=== PATIENT | female | born 1950 | race Caucasian/White ===

== ENCOUNTER → 2017-07-19 12:27 | Outpatient (CLI) | payer MEDICARE, SELFPAY ==
--- NOTE | 2017-07-19 12:32 | XR_ITS ---
XR hand RT min 3V HISTORY: Right thumb pain ITS.REASON: right thumb pain ORDERING PHYSICIAN: Kristopher Luna MD PATIENT AGE: 66 years COMPARISON: None FINDINGS: There are mild osteoarthritic changes of the first metacarpal carpal joint with minimal osteophyte formation at the trapezium. The hand has an otherwise unremarkable appearance. There are some hypertrophic changes of the distal aspect of the scaphoid as well. No fracture or dislocation. No lytic or blastic change. 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
== END ==
PROVIDERS: PCP Family Medicine; Visit Provider Orthopaedic Surgery
DX: M79.644 Pain in right finger(s) (principal)
CPT/HCPCS: 73130

== ENCOUNTER → 2017-09-18 10:55 | Outpatient (CLI) | payer MEDICARE, SELFPAY ==
--- NOTE | 2017-09-18 11:11 | MM_ITS ---
MM Dig screening mamm BI w/CAD CAD Screening ORDERING PHYSICIAN : Martin Pham MD PATIENT AGE: 66 years GENDER: Female HISTORY : No hormones. No new complaints. Noncontributory family history COMPARISON: Previous mammograms: August 2015, 2016, 2014, June 2013 INDICATION: Routine screening TECHNIQUE: Standard CC and MLO images were obtained. R2 CAD reviewed. FINDINGS: Stable mild asymmetry with no significant new findings. No dominant mass nor suspicious calcifications either breast.. Moderate density with Mild/moderate fibroglandular elements in both breast which again are most evident at the right breast. CAD computer review highlights no areas of concern either. . IMPRESSION: Stable bilateral mammogram with no significant new findings. Bilateral follow-up in one year recommended. BI-RADS Category: 1 Negative RECOMMENDED FOLLOW-UP: 1YR - 1 YEAR FOLLOW-UP (A letter has been sent to the patient regarding results of the study.)
== END ==
PROVIDERS: Family Provider Family Medicine; PCP Family Medicine; Visit Provider Family Medicine
DX: Z12.31 Encounter for screening mammogram for malignant neoplasm of breast (principal)
CPT/HCPCS: 77067

== ENCOUNTER → 2018-10-10 09:59 | Outpatient (CLI) | payer MEDICARE, SELFPAY ==
--- NOTE | 2018-10-10 10:05 | XR_ITS ---
XR DEXA axial skeleton HISTORY: ITS.REASON: POST MENOPAUSAL ORDERING PHYSICIAN: Martin Pham MD PATIENT AGE: 67 years COMPARISON: 11/10/2015 FINDINGS: The BMD measured at the Left femoral neck is 1.093 g/cm squared with a T score of 0.4. This is considered normal according to the World Health Organization criteria. Fracture risk is Low. The L1 L4 density has a T score of 0.7 which is normal. Lumbar spine density has decreased by 7% in the hip density has decreased by 8 percent. IMPRESSION: Normal bone density with low fracture risk. Suggest follow-up exam October 2020
== END ==
PROVIDERS: PCP Family Medicine; Visit Provider Family Medicine
DX: Z78.0 Asymptomatic menopausal state (principal)
CPT/HCPCS: 77080

== ENCOUNTER → 2018-11-07 11:00 | Outpatient (CLI) | payer MEDICARE, SELFPAY ==
--- NOTE | 2018-11-07 11:04 | MM_ITS ---
MM Dig screening mamm BI w/CAD CAD Screening COMPARISON: Digital mammograms with CAD 09/18/2017 and 08/24/2016 INDICATION: There is no personal or family history of breast cancer TECHNIQUE: Standard CC and MLO images were obtained. R2 CAD reviewed. FINDINGS: Minimal scattered fibroglandular densities are seen in the central portions and subareolar regions of both breasts. There are couple benign-appearing microcalcifications right breast, there is a mole marker left breast. There is no suspicious lesion and there are no suspicious microcalcifications. IMPRESSION: Fibrofatty parenchyma no suspicious lesion seen BI-RADS Category: 2 Benign Finding(s) RECOMMENDED FOLLOW-UP: 1YR - 1 YEAR FOLLOW-UP (A letter has been sent to the patient regarding results of the study.)
== END ==
PROVIDERS: PCP Family Medicine; Visit Provider Family Medicine
DX: Z12.31 Encounter for screening mammogram for malignant neoplasm of breast (principal)
CPT/HCPCS: 77067

== ENCOUNTER → 2019-11-20 12:44 | Outpatient (CLI) | payer MEDICARE, SELFPAY ==
--- NOTE | 2019-11-20 12:49 | MM_ITS ---
PROCEDURE: MM DIG SCREENING MAMM BI W/CAD DIGITAL BREAST TOMOSYNTHESIS INCLUDED Patient Age:68Y CLINICAL INDICATION: SCREENING 68-year-old no hormones no new complaints. 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 R2 CAD reviewed. Bilateral digital breast tomosynthesis included. Additional nipple profile MLO view bilateral FINDINGS: Moderate asymmetry of the breast. Right breast: Again more dense fibroglandular elements throughout superior right breast versus left-but this pattern has been seen before and appears fairly similar to some previous studies . However there is a slightly more focal irregular appearing area of density at 12 o'clock.. Most likely this is stable island of fibroglandular elements but only partially dissipates on tomosynthesis . Still with this appearance I would suggest spot view and ultrasound for further evaluation here particularly since no ultrasound has been performed here previously Left breast: Stable appearance to the left with no areas of concern IMPRESSION: Right breast Asymmetric area of density at 12 o'clock.-Most likely focal island of asymmetric fibroglandular tissue yield this density but warrants a ultrasound and spot views right breast to further evaluate at this time Left breast: Stable. Follow-up left mammogram 1 year BI-RAD Category: 0 Need Additional Imaging Evaluation FOLLOW-UP: IMM Immediate Follow-up Recommended Right breast spot views and ultrasound suggested to further evaluate (A letter has been sent to the patient regarding results of the study.) Dictated by: Renato Marin MD 11/21/2019 09:58 Electronically signed by Renato Marin MD in [place] 11/21/2019 09:58
== END ==
PROVIDERS: PCP Family Medicine; Visit Provider Family Medicine
DX: Z12.31 Encounter for screening mammogram for malignant neoplasm of breast (principal)
CPT/HCPCS: 77063; 77067

== ENCOUNTER → 2019-12-04 12:47 | Outpatient (CLI) | payer MEDICARE, SELFPAY ==
--- NOTE | 2019-12-04 13:06 | US_ITS ---
PROCEDURE: MM DIG MAMM DX UNILAT RT CAD Digital Breast Tomosynthesis Included CLINICAL INDICATION: ABNORMAL MAMMOGRAM Asymmetric density 12 o'clock right breast COMPARISON: MG [facility] MM Dig screening mamm BI w/CAD from 09/18/2017 MG DIG MAMM-SCREEN HERMELINDA from 11/07/2018 MG MM DIG SCREENING MAMM BI W/CAD from 11/20/2019 US US BREAST RT COMPLETE from 12/04/2019 TECHNIQUE: Spot-compression views along with right breast ultrasound complete with axilla FINDINGS: No malignant appearing mass or malignant-appearing microcalcification. Asymmetry noted at the 12 o'clock region as before felt to be related to fibroglandular tissue without a sonographic correlate. A probably unchanged compared to multiple previous exams. Right breast ultrasound: No cystic or solid lesions demonstrated. IMPRESSION: BI-RAD Category: 3 Probably Benign Finding Short Term Follow-up FOLLOW-UP: 6M 6Month Follow-up (A letter has been sent to the patient regarding results of the study.) Dictated b Van Mckinney MD 12/12/2019 18:06 Van Mckinney MD in [place] 12/12/2019 18:06
== END ==
PROVIDERS: PCP Family Medicine; Visit Provider Family Medicine
DX: R92.8 Other abnormal and inconclusive findings on diagnostic imaging of breast (principal)
CPT/HCPCS: 76641; 77061; 77065; G0279

== ENCOUNTER → 2020-06-01 14:19 | Outpatient (CLI) | payer MEDICARE, SELFPAY ==
--- NOTE | 2020-06-01 | US_ITS ---
PROCEDURE: MM DIG MAMM DX UNILAT RT CAD Digital Breast Tomosynthesis Included CLINICAL INDICATION: 6 MTH F/U RT BREAST COMPARISON: MG [facility] DIGITAL MAMM-SCREEN BILATERAL from 05/04/2010 MG DIG MAMM-SCREEN HERMELINDA from 11/07/2018 MG MM DIG SCREENING MAMM BI W/CAD from 11/20/2019 MG MM DIG MAMM DX UNILAT RT CAD from 12/04/2019 US US BREAST RT COMPLETE from 12/04/2019 TECHNIQUE: Standard CC and MLO images and 3D Tomosynthesis was obtained. R2 CAD reviewed. FINDINGS: Average fibroglandular tissue. No malignant appearing mass or malignant-appearing microcalcification evident. Asymmetry once again noted in the superior aspect of the right breast similar to multiple previous exams. Right breast ultrasound: There is an ill-defined area of slight decreased echogenicity in the 10 o'clock region near the nipple containing a prominent duct consistent with fibrocystic changes. IMPRESSION: Benign findings. Recommend resume screening mammogram November 2020 BI-RAD Category: 2 Benign Finding(s) FOLLOW-UP: 6M 6Month Follow-up (A letter has been sent to the patient regarding results of the study.) Dictated by: Van Mckinney MD 06/08/2020 17:16 Van Mckinney MD in [place] 06/08/2020 17:17
== END ==
PROVIDERS: PCP Family Medicine; Visit Provider Family Medicine
DX: R92.8 Other abnormal and inconclusive findings on diagnostic imaging of breast (principal)
CPT/HCPCS: 76641; 77061; 77065; G0279

== ENCOUNTER → 2020-12-09 15:12 | Outpatient (CLI) | payer MEDICARE, SELFPAY ==
--- NOTE | 2020-12-09 15:17 | MM_ITS ---
PROCEDURE INFORMATION: Exam: MG Screening 3D Mammography Exam date and time: 12/09/2020 3:17 PM Age: 70 years old Clinical indication: screening mammogram TECHNIQUE: Imaging protocol: Screening tomosynthesis and 2D mammography including computer-aided detection (CAD) when performed. COMPARISON: 1. MG MM DIG MAMM DX UNILAT RT CAD 06/01/2020 2:54 PM 2. MG MM DIG MAMM DX UNILAT RT CAD 12/04/2019 1:33 PM 3. MG MM DIG SCREENING MAMM BI W/CAD 11/20/2019 1:05 PM 4. MG DIG MAMM-SCREEN HERMELINDA 11/07/2018 11:20 AM 08/24/2016, 08/19/2015, 08/07/2014 FINDINGS: MAMMOGRAPHY: Breast composition: The breast tissue is heterogeneously dense, which may obscure small masses. Mass: None. Architectural distortion: No new or suspicious architectural distortion. Calcifications: No new or suspicious calcifications are present Asymmetric density: Stable focal asymmetry in the upper outer right breast dating back at least to 08/07/2014. No new or suspicious asymmetric density is present Skin thickening: None. Axillary adenopathy: None. IMPRESSION: No mammographic evidence of malignancy. Recommend annual screening mammography unless otherwise clinically indicated. ASSESSMENT: BI-RADS category 2: Benign
== END ==
PROVIDERS: PCP Family Medicine; Visit Provider Family Medicine
DX: Z12.31 Encounter for screening mammogram for malignant neoplasm of breast (principal)
CPT/HCPCS: 77063; 77067

== ENCOUNTER → 2021-06-09 13:21 | Outpatient (CLI) | payer MEDICARE, SELFPAY | PROVIDERS: PCP Family Medicine; Visit Provider Family Medicine | DX: Z12.31 Encounter for screening mammogram for malignant neoplasm of breast (principal) ==

== ENCOUNTER → 2021-12-22 12:54 | Outpatient (CLI) | payer MEDICARE, SELFPAY ==
--- NOTE | 2021-12-22 12:57 | MM_ITS ---
PROCEDURE INFORMATION: Exam: MG Bilateral Screening 3D Mammography Exam date and time: 12/22/2021 12:54 PM Age: 71 years old Clinical indication: Screening examination. No family history of breast cancer. TECHNIQUE: Imaging protocol: Bilateral Screening tomosynthesis and 2D mammography including computer-aided detection (CAD) when performed. COMPARISON: 1. MG MM DIG SCREENING MAMM BI W/CAD 12/09/2020 3:31 PM 2. MG MM DIG MAMM DX UNILAT RT CAD 06/01/2020 2:54 PM 3. MG MM DIG MAMM DX UNILAT RT CAD 12/04/2019 1:33 PM 4. MG MM DIG SCREENING MAMM BI W/CAD 11/20/2019 1:05 PM 5. MG [facility]B DIGITAL MAMM-SCREEN BILATERAL 05/04/2010 1:56 PM FINDINGS: MAMMOGRAPHY: Breast composition: There are scattered areas of fibroglandular density. Mass: None. Architectural distortion: None. Calcifications: No suspicious calcifications. Asymmetric density: Stable asymmetrically denser tissue in the right upper outer quadrant since 05/04/2010. Skin thickening: None. Axillary adenopathy: None. IMPRESSION: No mammographic evidence of malignancy. Annual screening is recommended unless otherwise clinically indicated. ASSESSMENT: BI-RADS Category 1: Negative
== END ==
PROVIDERS: PCP Family Medicine; Visit Provider Family Medicine
DX: Z12.31 Encounter for screening mammogram for malignant neoplasm of breast (principal)
CPT/HCPCS: 77063; 77067

== ENCOUNTER → 2023-01-10 09:19 | Outpatient (CLI) | payer MEDICARE, SELFPAY ==
--- NOTE | 2023-01-10 09:21 | XR_ITS ---
FINAL REPORT TECHNIQUE: Bone densitometry calculations of the lumbar spine and left hip were obtained. CLINICAL HISTORY: POST MENOPAUSAL FINDINGS: Using L1-4, the bone mineral density of the spine is 1.092 g/cm2, corresponding to T-score of 0.4. Using the left hip, the bone mineral density of the femoral neck is 0.969 g/cm2, corresponding to a T-score of 0.2. Using the right hip, the bone mineral density of the femoral neck is 0.997 g/cm2, corresponding to a T-score of 0.4. NOTE: T-score: Standard deviation compared with peak bone mass of young adult mean. *Following the recommendations of the International Society of Bone densitometry, classification of hip BMD is based on the lower of two T-scores; total hip or femoral neck. IMPRESSION: Normal bone mineral density of the lumbar spine and hips. FRAX was not reported because all of the T-scores are at or above -1.0 Reviewed, Interpreted and Dictated by Mikey Sotelo III, MD Transcribed by Heidi Ott Authenticated and [facility]
== END ==
PROVIDERS: PCP Family Medicine; Visit Provider Family Medicine
DX: Z78.0 Asymptomatic menopausal state (principal)
CPT/HCPCS: 77080

== ENCOUNTER → 2023-01-10 09:42 | Outpatient (CLI) | payer MEDICARE, SELFPAY ==
[2023-01-10 10:53] LABS: Chloride 99 mmol/L (98-107); Sodium 134 mmol/L (136-145)
[2023-01-10 10:54] LABS: Potassium 4.7 mmoL/L (3.5-5.1)
[2023-01-10 10:56] LABS: Alanine Aminotransferase 18 U/L (12-78); Albumin/Globulin Ratio 1.9 (1.1-1.8); Alkaline Phosphatase 85 U/L (38-126); Anion Gap 11.7 mEq/L (5-15); Aspartate Amino Transferase 27 U/L (14-36); Bilirubin,Total 0.4 mg/dl (0.2-1.3); Blood Urea Nitrogen 16 mg/dl (7-17); Carbon Dioxide 28 mmol/L (22.0-30.0); Cholesterol 101 mg/dl (140-200); Estimated Glomerular Filt Rate 61 ml/min (>60); GFR (African American) 74 ML/MIN (>60); Globulin 2.1 g/dL (1.3-3.2); Total Protein,Serum 6.1 g/dl (6.3-8.2); Triglycerides 121 mg/dl (30-150); VLDL Cholesterol 24 mg/dL (0-40)
[2023-01-10 10:57] LABS: Calcium 9.4 mg/dl (8.4-10.2); Glucose 99 mg/dl (74-100)
[2023-01-10 11:08] LABS: Direct LDL Cholesterol 34.65 mg/dL (100-129)
[2023-01-10 13:05] LABS: Chol/HDL Ratio 2.2 (1-3.5); HDL Cholesterol 46 mg/dl (40-60)
== END ==
PROVIDERS: PCP Family Medicine; Visit Provider Family Medicine
DX: I10 Essential (primary) hypertension (principal); E78.5 Hyperlipidemia, unspecified; Z78.0 Asymptomatic menopausal state
CPT/HCPCS: 36415; 77080; 80053; 80061

== ENCOUNTER → 2023-02-15 12:51 | Outpatient (CLI) | payer MEDICARE, SELFPAY ==
--- NOTE | 2023-02-15 13:01 | MM_ITS ---
PROCEDURE INFORMATION: Exam: MG Bilateral Screening 3D Mammography Exam date and time: 02/15/2023 1:11 PM Age: 72 years old Clinical indication: Screening examination TECHNIQUE: Imaging protocol: Bilateral Screening tomosynthesis and 2D mammography including computer-aided detection (CAD) when performed. COMPARISON: 1. MG MM DIG SCREENING MAMM BI W/CAD 12/22/2021 12:54 PM 2. MG MM DIG SCREENING MAMM BI W/CAD 12/09/2020 3:31 PM FINDINGS: MAMMOGRAPHY: Breast composition: There are scattered areas of fibroglandular density. Mass: Questionable 0.4 cm mass in the posterior left deep 3 o'clock axis Architectural distortion: None. Calcifications: No suspicious calcifications. Asymmetric density: None. Skin thickening: None. Axillary adenopathy: None. IMPRESSION: Patient to be recalled for spot compression views of the left breast in the CC and MLO projections, a full 90 degree lateral view, and left breast ultrasound for further evaluation of a left breast mass. ASSESSMENT: BI-RADS Category 0: Incomplete- Need Additional Imaging Evaluation and/or Prior Mammograms for Comparison
== END ==
PROVIDERS: PCP Family Medicine; Visit Provider Family Medicine
DX: Z12.31 Encounter for screening mammogram for malignant neoplasm of breast (principal)
CPT/HCPCS: 77063; 77067

== ENCOUNTER → 2023-03-06 13:51 | Outpatient (CLI) | payer MEDICARE, SELFPAY ==
--- NOTE | 2023-03-06 14:21 | MM_ITS ---
PROCEDURE INFORMATION: Exam: US Left Breast, Complete MG Left Diagnostic Breast Tomosynthesis Exam date and time: 03/06/2023 2:22 PM Age: 72 years old Clinical indication: Patient recalled on the basis of a screening mammogram for further evaluation; left breast mass TECHNIQUE: Imaging protocol: Complete ultrasound of all four quadrants of the left breast and the retroareolar regions, including ultrasound of the axilla when performed. Left Diagnostic tomosynthesis and 2D mammography including computer-aided detection (CAD) when performed. Unilateral or bilateral exam. COMPARISON: MG MM DIG MAMM DX UNILAT LT CAD 03/06/2023 1:54 PM FINDINGS: MAMMOGRAPHY: Digital diagnostic spot compression views of the posterior left 3 o'clock axis demonstrates a persistent 0.4 cm partially circumscribed mass without associated architectural distortion. ULTRASOUND: Sonographic images of the left breast including the retroareolar region, all 4 quadrants and the axilla do not demonstrate any solid or cystic masses. No architectural distortion or acoustical shadowing. No skin thickening or axillary adenopathy. IMPRESSION: Interval development of a 0.4 cm mass only seen on mammography in the posterior third of the left 3 o'clock axis. The finding is presumed to be solid. The interval development of a solid mass in a postmenopausal female should be regarded with some suspicion for carcinoma. Therefore, Stereotactic core biopsy is recommended for further evaluation. The images have been annotated. ASSESSMENT: BI-RADS Category 4: Suspicious
== END ==
PROVIDERS: PCP Family Medicine; Visit Provider Family Medicine
DX: R92.8 Other abnormal and inconclusive findings on diagnostic imaging of breast (principal)
CPT/HCPCS: 76641; 77061; 77065; G0279

== ENCOUNTER → 2023-03-22 07:19 | Outpatient (CLI) | payer MEDICARE, SELFPAY ==
--- NOTE | 2023-03-22 07:25 | MM_ITS ---
FINAL REPORT CLINICAL HISTORY: unsuccessful stereo-- us done also-- dr perry recommended pt to return for 6 mo fu FINDINGS: Patient was scheduled for stereotactic biopsy of focal asymmetry. Localization of the abnormality under stereotactic guidance was unsuccessful despite extensive effort. Attempts at visualizing the lesion under ultrasound for ultrasound directed biopsy were also unsuccessful. Based on lack of definitive visualization of the abnormality for biopsy and the imaging characteristics six-month follow-up is recommended. IMPRESSION: Lesion is favored to be probably benign. Six-month diagnostic mammography and ultrasound follow-up recommended given unsuccessful biopsy. This was discussed at length with patient. BI RAD-3: PROBABLY BENIGN Authenticated and [facility]
== END ==
PROVIDERS: PCP Family Medicine; Visit Provider Family Medicine
DX: R92.8 Other abnormal and inconclusive findings on diagnostic imaging of breast (principal)
CPT/HCPCS: 76642

== ENCOUNTER 2023-09-27 14:29 | Outpatient (CLI) | payer MEDICARE, SELFPAY ==
--- NOTE | 2023-09-27 14:39 | MM_ITS ---
PROCEDURE INFORMATION: Exam: US Left Breast, Complete MG Left Diagnostic Breast Tomosynthesis Exam date and time: 09/27/2023 3:06 PM Age: 72 years old Clinical indication: Stereotactic core biopsy was recommended to assess a sonographically occult posterior left 3 o'clock 0.4 cm mass identified characterized 03/06/2023. Stereotactic biopsy was not able to be performed due to difficulty targeting. TECHNIQUE: Imaging protocol: Complete ultrasound of all four quadrants of the left breast and the retroareolar regions, including ultrasound of the axilla when performed. Left Diagnostic tomosynthesis and 2D mammography including computer-aided detection (CAD) when performed. Unilateral or bilateral exam. COMPARISON: 08/07/2014, 09/18/2017, 12/09/2020, 12/22/2021, 02/15/2023, 03/22/2023 FINDINGS: MAMMOGRAPHY: Breast composition: There are scattered areas of fibroglandular density. Breast mammogram findings: 3 o'clock posterior 0.4 cm partially obscured mass is unchanged when compared with prior examinations dating back as far as 12/22/2021. This may have been present on prior examinations earlier than 2021 but seen to better advantage currently due to altered imaging technique No associated architectural distortion or suspicious calcifications have developed ULTRASOUND: Breast ultrasound findings: In the region of mammographic interest, left 3 o'clock 4 cm from the nipple, there is a hypoechoic 0.4 x 0.2 x 0.4 cm mass with central elevated echotexture especially noted on sagittal projection. This has features highly suggestive of a benign intramammary lymph node IMPRESSION: Six-month follow-up left diagnostic mammogram is recommended to assure stability of a 3 o'clock left breast mass for which stereotactic biopsy was previously recommended. At that time, the patient will be due for annual screening mammography ASSESSMENT: BI-RADS category 3: Probably benign
== END 2023-09-27 23:59 | disposition home or self-care (01) ==
LOC: RAD 14:34
PROVIDERS: PCP Family Medicine; Visit Provider Family Medicine
DX: R92.8 Other abnormal and inconclusive findings on diagnostic imaging of breast (principal)
CPT/HCPCS: 76641; 77061; 77065; G0279

== ENCOUNTER 2024-03-25 15:09 | Outpatient (CLI) | payer MEDICARE, SELFPAY ==
--- NOTE | 2024-03-25 15:09 | CT_ITS ---
FINAL REPORT TECHNIQUE: Multiple axial CT sections were performed through the face without IV contrast. Coronal reconstruction images were performed. This study was performed with techniques to keep radiation doses as low as reasonably achievable (ALARA). Individualized dose reduction techniques using automated exposure control or adjustment of mA and/or kV according to the patient's size were employed. CLINICAL HISTORY: .acute sinusitis FINDINGS: The asteroid air cells are hypoplastic. The osteomeatal units are normal. There is minimal mucoperiosteal thickening of both maxillary sinuses. IMPRESSION: Minimal chronic maxillary sinusitis. Reviewed, Interpreted and Dictated by Bryson Duff MD Transcribed by Heidi Ott Authenticated and [facility]
== END 2024-03-25 23:59 | disposition home or self-care (01) ==
LOC: RAD 15:09
PROVIDERS: PCP Family Medicine; Visit Provider Nurse Practitioner
DX: R51.9 Headache, unspecified (principal); H93.8X3 Other specified disorders of ear, bilateral; R09.81 Nasal congestion; J01.91 Acute recurrent sinusitis, unspecified
CPT/HCPCS: 70486

== ENCOUNTER 2024-03-26 15:27 | Outpatient (CLI) | payer MEDICARE, SELFPAY ==
--- NOTE | 2024-03-26 15:35 | MM_ITS ---
PROCEDURE INFORMATION: Exam: MG Bilateral Diagnostic Breast Tomosynthesis Exam date and time: 03/26/2024 3:26 PM Age: 73 years old Clinical indication: Follow-up from prior for probably benign left breast mass. TECHNIQUE: Imaging protocol: Bilateral Diagnostic tomosynthesis and 2D mammography including computer-aided detection (CAD) when performed. Unilateral or bilateral exam. COMPARISON: 1. MG MM DIG MAMM DX UNILAT LT CAD 09/27/2023 2:36 PM 2. MG REPEAT VIEW MM 03/22/2023 8:14 AM FINDINGS: MAMMOGRAPHY: Breast composition: There are scattered areas of fibroglandular density. Breast mammogram findings: Bilateral full field CC and MLO tomosynthesis views were obtained. Mass: Slight interval increase in size of left breast mass now measuring roughly 0.6 cm in the lateral breast at middle depth. Architectural distortion: None. Calcifications: No suspicious calcifications. Asymmetric density: None. Skin thickening: None. Axillary lymphadenopathy: None. IMPRESSION: Slight interval increase in size of left breast mass which previously was recommended to undergo biopsy and has no sonographic correlate. Recommend stereotactic guided needle biopsy. ASSESSMENT: BI-RADS Category 4: Suspicious.
== END 2024-03-26 23:59 | disposition home or self-care (01) ==
LOC: RAD 15:27
PROVIDERS: PCP Family Medicine; Visit Provider Family Medicine
DX: Z12.31 Encounter for screening mammogram for malignant neoplasm of breast (principal); R92.8 Other abnormal and inconclusive findings on diagnostic imaging of breast; N63.20 Unspecified lump in the left breast, unspecified quadrant
CPT/HCPCS: 77063; 77067

== ENCOUNTER 2024-04-22 08:57 | Day surgery (SDC) | payer MEDICARE, SELFPAY ==
[2024-04-19 12:43] VITALS: BMI 25.4
[2024-04-22 09:26] VITALS: BP 141/68; PULSE 88; RESP 16; TEMP 37; O2SAT 97
[2024-04-22] MEDS: LACTATED RINGERS 1000ML 1,000 ML 25 ML IV (09:35)
--- NOTE | 2024-04-22 09:41 | EXP.ANES.CKL ---
[facility] Disclaimer: The information contained in this section may have been updated after the patient was seen, as this information can be updated by other users. Medical History GERD (gastroesophageal reflux disease) High cholesterol Hypertension Sinus headache Nasal congestion Congestion of both ears Acute sinusitis Surgical History History of cholecystectomy History of tonsillectomy Family History (Updated 04/22/24 @ 09:28 by Viola Wayne RN) Other No significant family history Social History (Updated 04/22/24 @ 09:28 by Viola Wayne RN) Smoking Status: Former smoker tobacco type: cigarettes alcohol intake: never substance use type: denies use current occupational status: retired Travel in the last 8 weeks: None caffeine: Yes [facility] Anesthesia Checklist Patient Identification Patient Identification: Arm Band Structural Data Admitted From: Home Planned Operative Procedure/s: Colonoscopy Consent for Planned Operative Procedure(s) Verified: Yes Verified Documents: Surgical Consent and History and Physical NPO Status Verified Time NPO: 05:30 (finished prep at this time) Additional verifications Anesthesia Reactions: No Airway Assessment Mallampati Score:: Class II C-Spine Mobility Assessed: Yes TMJ Mobility Assessed: Yes Dentition: Good Dentition Neurological Assessment Level of Consciousness: Awake, Alert and Appropriate Anesthesia Plan Anesthesia Risk discussed: Yes Anesthesia Plan: Verified ASA Class: II Anesthesia Type: MAC
--- NOTE | 2024-04-22 09:52 | EXP.HP ---
History of Present Illness *Admission Date: 04/22/24 *Reason for visit:: Surveillance colonoscopy-family history *History of present illness: Mrs. Milton is a 73-year-old female who is here for follow-up surveillance colonoscopy and last colonoscopy was 10 years ago approximately. Her mother had colon cancer in her mid 40s. The patient did have 1 polyp removed previously.. The examination is deemed medically necessary for surveillance colonoscopy. The patient has been seen, interviewed and examined prior to the procedure by both myself and the anesthesia provider. [facility] Disclaimer: The information contained in this section may have been updated after the patient was seen, as this information can be updated by other users. Medical History (Updated 04/22/24 @ 10:08 by Tres Antonio II, MD) GERD (gastroesophageal reflux disease) High cholesterol Hypertension Sinus headache Nasal congestion Congestion of both ears Acute sinusitis Surgical History History of cholecystectomy History of tonsillectomy Family History (Updated 04/22/24 @ 09:28 by Viola Wayne RN) Other No significant family history Social History (Updated 04/22/24 @ 09:42 by Fernando Abrams CRNA) Smoking Status: Former smoker tobacco type: cigarettes alcohol intake: never substance use type: denies use current occupational status: retired Travel in the last 8 weeks: None caffeine: Yes Have you lived/traveled outside US in past 30 days?: No Contact w/someone who lives/traveled outside US past 30 days?: No Exposure to someone with infectious disease in past 14 days?: No Do you have a fever (greater than 100.4 F or 38 C)?: No Have you tested positive for COVID-19: No Exposed to someone with COVID-19 in past 14 days?: No Do you have a sore throat?: No Do you have a cough?: No Do you have any weakness?: No Are you experiencing any nausea/vomitting?: No Do you have any diarrhea?: No Are you experiencing any unusual bleeding?: No Do you have any muscle aches/pain?: No Do you have any abdominal pain?: No Are you experiencing loss of taste or smell?: No Other Medical History Have you received the Flu Vaccine for this season: Yes Have you received the Pneumonia Vaccine: Yes Review of Systems Review of Systems Review of systems (narrative): Negative *Cardiovascular Comments: Negative *Gastrointestinal Comments: Negative *Genitourinary Comments: Negative *Musculoskeletal Comments: Negative *Neurologic Comments: Negative Meds Home Medications and Allergies Home Medications ?Medication ?Instructions ?Recorded ?Confirmed ?Type ascorbic acid (vitamin C) 250 mg 250 mg PO BID 07/19/17 04/22/24 History chewable tablet calcium carbonate (Calcium 500) 500 mg PO BID 07/19/17 04/22/24 History fluticasone propionate 50 1 spray intranasal ONCE 07/19/17 04/22/24 History mcg/actuation nasal spray,suspension rosuvastatin 10 mg tablet 10 mg PO ONCE 07/19/17 04/22/24 History azelastine 137 mcg (0.1 %) nasal 137 mcg intranasal DAILY 03/11/24 04/22/24 History spray levocetirizine 5 mg tablet 5 mg PO DAILY 03/11/24 04/19/24 History lisinopril 20 mg tablet 20 mg PO DAILY 03/11/24 04/22/24 History montelukast 10 mg tablet 10 mg PO DAILY 03/11/24 04/19/24 History omeprazole 40 mg capsule,delayed 40 mg PO DAILY 03/11/24 04/19/24 History release oxybutynin chloride 5 mg tablet 5 mg PO DAILY 03/11/24 04/19/24 History sodium,potassium,mag sulfates 17.5 See Rx Instructions PO .COMPLEX 04/12/24 04/19/24 Rx gram-3.13 gram-1.6 gram oral soln #354 mL (Suprep Bowel Prep Kit) New Prescriptions to Start Prescriptions: Allergies Allergy/AdvReac Type Severity Reaction Status Date / Time From Penicillin G Sodium Allergy Unknown Hives Uncoded 04/19/24 12:36 Loratadine Allergy Unknown Unknown Uncoded 04/19/24 12:36 allergy reaction Penicillin Allergy Unknown Hives Uncoded 04/01/24 14:19 Exam Data for Last 24 hours Vital signs and Labs for Last 24 Hours: Temp Pulse Resp BP Pulse Ox O2 Del Method 98.6 F 88 16 141/68 H 97 Room Air 04/22/24 09:26 04/22/24 09:26 04/22/24 09:26 04/22/24 09:26 04/22/24 09:26 04/22/24 09:26 I & O for Last 24 hours: Intake & Output 04/19/24 04/20/24 04/21/24 04/22/24 23:59 23:59 23:59 23:59 Weight 144 lb *Routine HEENT Exam Head: Present normocephalic Eye: Present EOMI and PERRL ENT: Present mucous membranes moist *Routine Neck Exam Neck: Present supple *Routine Respiratory Exam Respiratory: Present CTA bilaterally *Routine Cardiovascular Exam Cardiovascular: Present RRR *Routine Abdominal Exam Abdominal: Present soft and normoactive bowel sounds; Absent tenderness *Routine Rectal Exam Rectal:: deferred *Routine Genitalia Exam Genitalia:: deferred *Routine Extremities Exam Extremities: Absent cyanosis, clubbing or edema *Routine Skin Exam Skin: Present warm; Absent rash *Routine Neurological Exam Neurological: Present alert and oriented X3 Assessment and Plan *Assessment and plan (1) Family history of colon cancer in mother: Status: Acute Category: Medical Code(s): Z80.0 - Family history of malignant neoplasm of digestive organs (2) Personal history of colon polyps, unspecified: Status: Acute Category: Medical Code(s): Z86.0100 - Personal history of colon polyps, unspecified Plan A/P: 1. Surveillance colonoscopy secondary to family history and prior polyp with last colonoscopy 10 years ago is the preprocedural diagnosis. The patient will be anesthetized/sedated using MAC sedation. The patient has been seen and examined. Cardiac and lung assessment prior to the examination is stable. Proceed with planned surveillance colonoscopy
[2024-04-22 09:59] VITALS: O2SAT 100
--- NOTE | 2024-04-22 10:08 | HMH.PROCNOTE ---
[facility] Procedure Note Date: 04/22/24 Time: 10:27 Procedure Note:: Colonoscopy Procedure Report: Colonoscopy with cold snare polypectomy Endoscopist: Tres Antonio II, MD Referring physician: Ramy Pham MD Date of Procedure: April 22, 2024 Equipment: Olympus 190 variable stiffness pediatric colonoscope Sedation: MAC sedation Indication: Mrs. Milton is a 73-year-old female who is here for follow-up surveillance colonoscopy. Her last colonoscopy was with mo 10 years ago. She did have a single polyp removed. Her mother had colon cancer in her mid 70s. The patient reports no abdominal pain, weight loss, change in her bowel habits or rectal bleeding. She does get occasional spotting from hemorrhoids and intermittent hemorrhoidal prolapse. She does report some incomplete defecation. Procedure: Prior to the procedure, a history and physical exam was performed, and patient's medications and allergies were reviewed. The risks, benefits and alternatives of the sedation and procedure were discussed with the patient. All questions were answered and informed consent was obtained. The patient was brought to the procedure room. Patient identification and proposed procedure were verified by the physician and the nurse. The patient was placed in a left lateral decubitus position and the scope was passed under direct vision. Throughout the procedure, the patient's blood pressure, pulse, and oxygen saturations were monitored continuously. The colonoscopy was accomplished without difficulty. The patient tolerated the procedure well. Findings: On digital rectal examination there was normal rectal tone. There were no external hemorrhoids. There were small external tags and minor hemorrhoid prolapse. The colonoscope was introduced through the anal canal to the rectum and advanced to the cecum. The ileocecal valve and appendiceal orifice were identified. The scope was advanced a short distance into the ileum which appeared grossly normal. The scope was then withdrawn into the colon. There were 4 colon polyps (transverse x 2 (4 and 5 mm), descending x 1 (4 mm) and rectum x 1 (5 mm)). These were all removed via cold snare polypectomy. The remaining cecum, ascending and transverse colon and mucosa were grossly normal. There were scattered diverticuli throughout the descending and sigmoid colon (LEFT colon). The rectum itself was normal. Upon retroflexion within the rectum there were grade 2 internal hemorrhoids. The preparation was excellent throughout with [place] Preparation Score of 9. The cecal time was 12 minutes. Impression: 1. Diminutive colonic polyps x 4 2. Left-sided diverticulosis 3. Grade 2 internal hemorrhoids Plan: I will follow-up the polyp histology and recommend repeat surveillance colonoscopy again in 5 years if the polyps are adenomatous. We will discuss whether further surveillance is warranted with patient and family. I would recommend psyllium bulking fiber supplementation on a long-term daily maintenance basis.
[2024-04-22 10:31] VITALS: BP 110/47; PULSE 72; RESP 18; TEMP 36.1; O2SAT 98
[2024-04-22 10:41] VITALS: BP 122/60; PULSE 84; RESP 18; O2SAT 95
[2024-04-22 10:51] VITALS: BP 123/62; PULSE 91; RESP 18; O2SAT 96
[2024-04-22 11:01] VITALS: BP 144/67; PULSE 89; RESP 20; O2SAT 97
== END 2024-04-22 11:01 | disposition home or self-care (01) ==
PROVIDERS: PCP Family Medicine; Visit Provider Internal Medicine Gastroenterology
PROC: (CPT 45385; principal; 2024-04-22 10:30)
DX: Z80.0 Family history of malignant neoplasm of digestive organs (principal); Z86.0100 Personal history of colon polyps, unspecified; K63.5 Polyp of colon; K57.30 Diverticulosis of large intestine without perforation or abscess without bleeding; K64.1 Second degree hemorrhoids
CPT/HCPCS: 45385; 88300; 88305; J2704; J7120

== ENCOUNTER 2024-05-06 08:00 | Outpatient (CLI) | payer MEDICARE, SELFPAY | END 2024-05-06 23:59 | disposition home or self-care (01) | LOC: RAD 08:00 | PROVIDERS: PCP Family Medicine; Visit Provider Family Medicine | DX: R92.8 Other abnormal and inconclusive findings on diagnostic imaging of breast (principal) ==

== ENCOUNTER 2025-03-21 09:48 | Outpatient (CLI) | payer MEDICARE, SELFPAY ==
--- OUTSIDE RECORDS SUMMARY | 2025-01-20 08:40 | XMS_ITS ---
[facility] Address [address] [facility] [address] [id number] Care Team Providers Care Electronic Resources Librarian Name Role Phone Radha Pham Primary Care Provider Prasad Lin [phone] REASON FOR VISIT allergy injection Medications Medication SIG (Take, Route, Frequency, Duration) Notes Start Date End Date Status Omeprazole 40 MG 1 tab(s) orally once a day pt needs appt Active Probiotic Formula 1-250 BILLION-MG 1 cap(s) orally once a day Active Ferrous Sulfate 325 (65 Fe) MG 1 tab(s) orally once daily 06/14/2022 Active hydrOXYzine HCl 25 MG 1 tablet as needed Orally Once a day; Duration: 30 day(s) 02/20/2024 Active Crestor 10 MG 1 tab(s) orally once a day pt needs appt Active oxyBUTYnin Chloride 5 MG 1 tablet Orally Two times a day Active Vitamin D3 25 MCG (1000 UT) 1 tab(s) orally once a day Active Vitamin C 500 MG 1 tab(s) orally once a day Active Vitamin B-12 1000 MCG 1 cap(s) sublingua lly once a day Active Fish Oil 1000 MG 1 cap(s) orally 3 times a day Active Flonase Allergy Relief 50 MCG/ACT 1 spray(s) intranasally once a day Active Azelastine HCl 137 MCG/SPRAY 4 sprays intranasally 2 times a day Active metroNIDAZOLE 0.75 % 1 truong applied topically 2 times a day Active Singulair 10 MG 1 tab(s) orally once a day (in the evening) Active Levocetirizine Dihydrochloride 5 MG 1 tab(s) orally once a day (in the evening) Active Lisinopril 20 MG 1 tab(s) orally once a day pt needs appt Active Encounters Encounter Location Date Provider Diagnosis [facility] [address] [place] [phone] 01/20/2025 Radha Pham Allergic rhinitis, unspecified J30.9 Assessments Encounter Date Diagnosis (ICD Code) Assessment Notes Treatment Notes Treatment Clinical Notes Section Notes 01/20/2025 Allergic rhinitis, unspecified (ICD-10 - J30.9) Plan Of Treatment No Information Medications Administered Medication Instructions Date of Administration Dosage Notes allergy 01/20/2025 0.20 mL vial 1: RA allergy 01/20/2025 0.20 mL vial 2: LA Progress Notes * MARILU ALEXANDERADOB:1950 (74 yo F)Acc No.[id number]:01/20/2025 Patient: BRONWYN CHAND Provider: Radha Pham M.D. :1950 A ge:74 Y S ex:Female Date:01/20/2025 Address:[address] [place], [place] [id number] Subjective: * Chief Complaints: * 1 . Allergy injection. * Medical History: * Medications: T aking metroNIDAZOLE 0.75 % Cream 1 truong applied topically 2 times a day , Taking Singulair 10 MG Tablet 1 tab(s) orally once a day (in the evening) , Taking Levocetirizine Dihydrochloride 5 MG Tablet 1 tab(s) orally once a day (in the evening) , Taking Flonase Allergy Relief 50 MCG/ACT Suspension 1 spray(s) intranasally once a day , Taking Azelastine HCl 137 MCG/SPRAY Solution 4 sprays intranasally 2 times a day , Taking oxyBUTYnin Chloride 5 MG Tablet 1 tablet Orally Two times a day , Taking Vitamin D3 25 MCG (1000 UT) Tablet 1 tab(s) orally once a day , Taking Vitamin C 500 MG Tablet 1 tab(s) orally once a day , Taking Vitamin B-12 1000 MCG Tablet 1 cap(s) sublingually once a day , Taking Fish Oil 1000 MG Capsule 1 cap(s) orally 3 times a day , Taking Probiotic Formula 1-250 BILLION-MG Capsule 1 cap(s) orally once a day , Taking Ferrous Sulfate 325 (65 Fe) MG Tablet 1 tab(s) orally once daily , Taking hydrOXYzine HCl 25 MG Tablet 1 tablet as needed Orally Once a day , Taking Crestor 10 MG Tablet 1 tab(s) orally once a day , Notes to Pharmacist: pt needs appt, Taking Omeprazole 40 MG Capsule Delayed Release 1 tab(s) orally once a day , Notes to Pharmacist: pt needs appt, Taking Lisinopril 20 MG Tablet 1 tab(s) orally once a day , Notes to Pharmacist: pt needs appt, Medication List reviewed and reconciled with the patient Objective: * Vitals: Assessment: * Assessment: 1. A llergic rhinitis, unspecified - J30.9 (Primary) Plan: * Treatment: * Therapeutic Injections: allergy : 0.20 mL (Route: Subcutaneous) given by LEANDRO Negro on right deltoid (Allergic rhinitis, unspecified) allergy : 0.20 mL (Route: Subcutaneous) given by LEANDRO Negro on left deltoid (Allergic rhinitis, unspecified) * Procedure Codes: 9 5117 IMMUNOTHERAPY INJECTIONS * Images: Billing Information: * Visit Code: * Procedure Codes: 40265 IMMUNOTHERAPY INJECTIONS. * Electronic signature of Radha Pham MD on 03/21/2025 at 09:52 AM EST Sign off status: Pending * Provider: Radha Pham M.D. Date: 0 01/20/2025 Generated for Og palomo/Kassi/Scout on: 05/21/2024 09:52 AM EST
--- OUTSIDE RECORDS SUMMARY | 2025-02-04 08:30 | XMS_ITS ---
Author Organization [facility] Address [address] [facility] 36 [facility] [address] [place] [phone] Care Team Providers Care Business Supervisor Name Role Phone Radha Pham Primary Care Provider Prasad Lin [phone] Encounters Encounter Location Date Provider Diagnosis [facility] [address] [facility] [address] [place] [phone] 02/04/2025 Radha Pham Allergic rhinitis, unspecified seasonality, unspecified trigger J30.9 Assessments Encounter Date Diagnosis (ICD Code) Assessment Notes Treatment Notes Treatment Clinical Notes Section Notes 02/04/2025 Allergic rhinitis, unspecified seasonality, unspecified trigger (ICD-10 - J30.9) Plan Of Treatment No Information Medications Administered Medication Instructions Date of Administration Dosage Notes allergy 02/04/2025 0.30 mL Mix 1 LA allergy 02/04/2025 0.30 mL Mix 2 RA Progress Notes * DAMIENANGELB:1950 (74 yo F)Acc No.[id number]:02/04/2025 Patient: BRONWYN CHAND Provider: Radha Pham M.D. :1950 A ge:74 Y S ex:Female Date:02/04/2025 Address:[address] [id number] Subjective: * Chief Complaints: * * Medical History: Objective: * Vitals: Assessment: * Assessment: 1. A llergic rhinitis, unspecified seasonality, unspecified trigger - J30.9 (Primary) ? Plan: * Treatment: * Therapeutic Injections: allergy : 0.30 mL (Route: Subcutaneous) given by Donna Lujan on subcutaneus (Allergic rhinitis, unspecified seasonality, unspecified trigger) allergy : 0.30 mL (Route: Subcutaneous) given by Donna Lujan on subcutaneus (Allergic rhinitis, unspecified seasonality, unspecified trigger) * Procedure Codes: 9 5117 IMMUNOTHERAPY INJECTIONS * Images: Billing Information: * Visit Code: * Procedure Codes: 59094 IMMUNOTHERAPY INJECTIONS. * Electronic signature of Radha Pham MD on 03/21/2025 at 09:51 AM EST Sign off status: Pending * Provider: Radha Pham M.D. Date: 0 02/04/2025 Generated for Og palomo/Kassi/Scout on: 1 05/21/2024 09:51 AM EST
--- OUTSIDE RECORDS SUMMARY | 2025-02-17 08:30 | XMS_ITS ---
Author Organization [facility] [address] [facility] [address] [id number] Care Team Providers Care Medtronics Technician Name Role Phone Radha Pham Primary Care Provider Prasad Lin [phone] REASON FOR VISIT allergy injection Medications Medication SIG (Take, Route, Frequency, Duration) Notes Start Date End Date Status hydrOXYzine HCl 25 MG 1 tablet as needed Orally Once a day; Duration: 30 day(s) 02/20/2024 Active Crestor 10 MG 1 tab(s) orally once a day pt needs appt Active Fish Oil 1000 MG 1 cap(s) orally 3 times a day Active Probiotic Formula 1-250 BILLION-MG 1 cap(s) orally once a day Active Ferrous Sulfate 325 (65 Fe) MG 1 tab(s) orally once daily 06/14/2022 Active Vitamin B-12 1000 MCG 1 cap(s) sublingua lly once a day Active Azelastine HCl 137 MCG/SPRAY 4 sprays intranasally 2 times a day Active oxyBUTYnin Chloride 5 MG 1 tablet Orally Two times a day Active Vitamin D3 25 MCG (1000 UT) 1 tab(s) orally once a day Active Vitamin C 500 MG 1 tab(s) orally once a day Active Singulair 10 MG 1 tab(s) orally once a day (in the evening) Active Levocetirizine Dihydrochloride 5 MG 1 tab(s) orally once a day (in the evening) Active Flonase Allergy Relief 50 MCG/ACT 1 spray(s) intranasally once a day Active metroNIDAZOLE 0.75 % 1 truong applied topically 2 times a day Active Lisinopril 20 MG 1 tab(s) orally once a day pt needs appt Active Omeprazole 40 MG 1 tab(s) orally once a day pt needs appt Active Encounters Encounter Location Date Provider Diagnosis [facility] [address] [place] [phone] 02/17/2025 Radha Pham Allergic rhinitis, unspecified J30.9 Assessments Encounter Date Diagnosis (ICD Code) Assessment Notes Treatment Notes Treatment Clinical Notes Section Notes 02/17/2025 Allergic rhinitis, unspecified (ICD-10 - J30.9) Plan Of Treatment No Information Medications Administered Medication Instructions Date of Administration Dosage Notes allergy 02/17/2025 0.4 mL vial 1: RA allergy 02/17/2025 0.4 mL vial 2: LA Progress Notes * MARILU ALEXANDERADOB:1950 (74 yo F)Acc No.[id number]:02/17/2025 Patient: BRONWYN CHAND Provider: Radha Pham M.D. :1950 A ge:74 Y S ex:Female Date:02/17/2025 Address:[address] [place], [place] [id number] Subjective: * Chief Complaints: * 1 . [...] * Treatment: * Therapeutic Injections: allergy : 0.4 mL (Route: Subcutaneous) given by GEM NegroE on right deltoid (Allergic rhinitis, unspecified) allergy : 0.4 mL (Route: Subcutaneous) given by GEM NegroE on left deltoid (Allergic rhinitis, unspecified) * Procedure Codes: 9 5117 IMMUNOTHERAPY INJECTIONS * Images: Billing Information: * Visit Code: * Procedure Codes: 40704 IMMUNOTHERAPY INJECTIONS. * Electronic signature of Radha Pham MD on 03/21/2025 at 09:53 AM EST Sign off status: Pending * Provider: Radha Pham M.D. Date: Generated for Og palomo/Kassi/Scout on: 05/21/2024 09:53 AM EST
--- OUTSIDE RECORDS SUMMARY | 2025-03-04 08:30 | XMS_ITS ---
Author Organization [facility] Address [address] [facility] [address] [id number] Care Team Providers Care Insurance Associate Name Role Phone Radha Pham Primary Care Provider Prasad Lin [phone] Allergies Allergen (clinical drug ingredient) Drug/Non Drug Allergy documented on EMR Reaction Allergy Type Onset Date Status Substance with penicillin structure and antibacterial mechanism of action (substance) Penicillins Unknown Drug Allergy Active REASON FOR VISIT ckup & allergy shot Medications Medication SIG (Take, Route, Frequency, Duration) Notes Start Date End Date Status Crestor 10 MG 1 tab(s) orally once a day Active Azelastine HCl 137 MCG/SPRAY 4 sprays intranasally 2 times a day Active Lisinopril 20 MG 1 tab(s) orally once a day Active Levocetirizine Dihydrochloride 5 MG 1 tab(s) orally once a day (in the evening) Active Flonase Allergy Relief 50 MCG/ACT 1 spray(s) intranasally once a day Active Crestor 10 MG 1 tab(s) orally once a day pt needs appt Active Omeprazole 40 MG 1 tab(s) orally once a day pt needs appt Active metroNIDAZOLE 0.75 % 1 truong applied topically 2 times a day Active Singulair 10 MG 1 tab(s) orally once a day (in the evening) Active Lisinopril 20 MG 1 tab(s) orally once a day pt needs appt Active Ferrous Sulfate 325 (65 Fe) MG 1 tab(s) orally once daily 06/14/2022 Active hydrOXYzine HCl 25 MG 1 tablet as needed Orally Once a day; Duration: 30 day(s) 02/20/2024 Active Fish Oil 1000 MG 1 cap(s) orally 3 times a day Active Probiotic Formula 1-250 BILLION-MG 1 cap(s) orally once a day Active Vitamin B-12 1000 MCG 1 cap(s) sublingua lly once a day Active oxyBUTYnin Chloride 5 MG 1 tablet Orally Two times a day Active Omeprazole 40 MG 1 tab(s) orally once a day Active Vitamin D3 25 MCG (1000 UT) 1 tab(s) orally once a day Active Dicyclomine HCl 10 MG 1 capsule Orally Three times a day prn; Duration: 30 days 03/04/2025 Active Vitamin C 500 MG 1 tab(s) orally once a day Active Problems Problem Type SNOMED Code ICD Code Onset Dates Problem Status W/U Status Risk Notes Problem Irritable bowel syndrome (81522898) IBS (irritable bowel syndrome) (K58.9) Active confirmed Vital Signs Weight 140.2 lbs 03/04/2025 Blood pressure systolic 150 mm Hg 03/04/20 25 Blood pressure diastolic 70 mm Hg 025 Heart Rate 65 /min 03/04/2025 Height 62 in 03/04/2025 BMI 25.64 kg/m2 03/04/2025 Encounters Encounter Location Date Provider [facility] [address] [place] [id number] 03/04/2025 Radha Pham Hypertension I10 ; Dyslipidemia E78.5 ; Gastroesophageal reflux disease without esophagitis K21.9 ; Overactive bladder N32.81 ; Rosacea L71.9 ; Seasonal allergies J30.2 ; IBS (irritable bowel syndrome) K58.9 and Allergic rhinitis, unspecified J30.9 Assessments Encounter Date Diagnosis (ICD Code) Assessment Notes Treatment Notes Treatment Clinical Notes Section Notes 03/04/2025 Hypertension (ICD-10 - I10) 03/04/2025 Dyslipidemia (ICD-10 - E78.5) 03/04/2025 Gastroesophageal reflux disease without esophagitis (ICD-10 - K21.9) 03/04/2025 Overactive bladder (ICD-10 - N32.81) 03/04/2025 Rosacea (ICD-10 - L71.9) 03/04/2025 Seasonal allergies (ICD-10 - J30.2) 03/04/2025 IBS (irritable bowel syndrome) (ICD-10 - K58.9) 03/04/2025 Allergic rhinitis, unspecified (ICD-10 - J30.9) Plan Of Treatment Medication Medication Name Sig Start Date Stop Date Notes Crestor 10 MG 1 tab(s) orally once a day Azelastine HCl 137 MCG/SPRAY 4 sprays in tranasally 2 times a day Lisinopril 20 MG 1 tab(s) orally once a day Levocetirizine Dihydrochlori de 5 MG 1 tab(s) orally once a day (in the evening) Flonase Allergy Relief 50 MCG/ACT 1 spray(s) intranasally once a day metroNIDAZOLE 0.75 % 1 truong applied topic ally 2 times a day Singulair 10 MG 1 tab(s) orally once a day (in the evening) oxyBUTYnin Chloride 5 MG 1 tablet Orally Two times a day Omeprazole 40 MG 1 tab(s) orally once a day Dicyclomine HCl 10 MG 1 capsule Orally T hree times a day prn; Duration: 30 days 03/04/2025 Pending Test Test Name Order Date H-Lipid Panel 03/04/2025 H-CMP 03/04/2025 Next Appt Details Follow Up: 6 Months, Reason: Medications Administered Medication Instructions Date of Administration Dosage Notes allergy 03/04/2025 0.05 mL vial 1- RA allergy 03/04/2025 0.05 mL vial 2- LA Progress Notes * MARILU ALEXANDERADOB:1950 (74 yo F)Acc No.[id number]:03/04/2025 Progress Notes Patient: BRONWYN CHAND Provider: aRdha Pham M.D. :1950 A ge:74 Y S ex:Female Date:03/04/2025 Address:[address] [place], [place] [phone] Subjective: * Chief Complaints: * 1 . Ckup & allergy shot. * HPI: H PI: Patient is here today for c heckup and labs. Pt is not fasting. Pt states she needs refills on meds. . G astroenterology: C/o frequent loose stools and cramping. Has hx of diverticulosis by C-scope 04/2024. Thinks she may have IBS-D. * ROS: D ERMATOLOGY: no R chana. n o H rima. G ASTROENTEROLOGY: no N ausea. n o V omiting. n o D iarrhea.? U ROLOGY: no D ifficulty urinating. n o B lood in urine. * Medical History: A llergies, Tobacco abuse, Hypertension, Diverticulosis- mild 07/10. * Surgical History: c holecystectomy 2002, tonsillectomy , C-scope/ [facility] 2013, EGD/ Antonio/ sliding HH, mild gastritis, polyp 2013, C-scope/ [facility]/ adenoma and hyperplastic polyp; tics 04/2024. * Hospitalization/Major Diagno stic Procedure: H ER, fell on left knee, no fracture 2006. * Family History: F ather: . M other: , colon cancer; RA; osteoporosis. 1 sister(s) . 1 daughter(s) . . * Social History: C URRENT TOBACCO USE S moking Status: Patient does NOT smoke. C affeine: yes, frequency:. Exercise: no. Home smoke detector use: yes. Marital Status: Single. New since last visit: none. Past smoking status: no, quit smoking 2 yrs ago after smoking 15 yrs.. Occup. exposure: none. Recreational drug use: no. Alcohol: no. Travel ouside [place]: no. * Medications: T aking metroNIDAZOLE 0.75 % [...] List reviewed and reconciled with the patient * Allergies: P enicillins. Objective: * Vitals: W t: 140.2, Temp: 97.7, BP: 150/70, HR: 65, Nurse: shania, Ht: 62, BMI:25.64. * Examination: G eneral Examination: General Appearance: N AD. . H EENT: s clera and conjunctiva clear, PERRLA, TMs normal. O ral cavity: n o lesions, mucosa moist and WNL, no erythema. N soila: s upple, no lymphadenopathy. H eart: r egular with Gr 1/6 syst murmur . L ungs: c lear to auscultation. N eurologic Exam: n o focal deficits. E xtremities: no leg edema. Assessment: * Assessment: 1. H ypertension - I10 (Primary) 2 . D yslipidemia - E78.5 3 . G astroesophageal reflux disease without esophagitis - K21.9 4 . O veractive bladder - N32.81 5 . R osacea - L71.9 6 . S easonal allergies - J30.2 7 . I BS (irritable bowel syndrome) - K58.9 8 .?Allergic rhinitis, unspecified - J30.9 Plan: * Treatment: 2. D yslipidemia Refill Crestor Tablet, 10 MG, 1 tab(s), orally, once a day, 90, Refills 1. 3. G astroesophageal reflux disease without esophagitis Refill Omeprazole Capsule Delayed Release, 40 MG, 1 tab(s), orally, once a day, 90, Refills 1. 4. O veractive bladder Refill oxyBUTYnin Chloride Tablet, 5 MG, 1 tablet, Orally, Two times a day, 180, Refills 1. ? 5. R osacea Continue metroNIDAZOLE Cream, 0.75 %, 1 truong, applied topically, 2 times a day. 6. S easonal allergies Continue Singulair Tablet, 10 MG, 1 tab(s), orally, once a day (in the evening); C ontinue Levocetirizine Dihydrochloride Tablet, 5 MG, 1 tab(s), orally, once a day (in the evening); C ontinue Flonase Allergy Relief Suspension, 50 MCG/ACT, 1 spray(s), intranasally, once a day; C ontinue Azelastine HCl Solution, 137 MCG/SPRAY, 4 sprays, intranasally, 2 times a day. 7. I BS (irritable bowel syndrome) Start Dicyclomine HCl Capsule, 10 MG, 1 capsule, Orally, Three times a day prn, 30 days, 60. ? * Therapeutic Injections: allergy : 0.05 mL (Route: Subcutaneous) given by LEANDRO Negro on right deltoid (Allergic rhinitis, unspecified) allergy : 0.05 mL (Route: Subcutaneous) given by GEM NegroE on left deltoid (Allergic rhinitis, unspecified) * Labs: * L ab: H-Lipid Panel L ab: H-CMP * Procedure Codes: 9 5115 IMMUNOTHERAPY, ONE INJECTION * Follow Up: 6 Months * Images: Billing Information: * Visit Code: 22032 Office Visit, Est Pt., Level 4. * Procedure Codes: 14240 IMMUNOTHERAPY, ONE INJECTION. * Electronic signature of Radha Pham MD on 03/21/2025 at 09:54 AM EST Sign off status: Pending * Provider: Radha Pham M.D. Date: Generated for Og palomo/Kassi/Scout on: 05/21/2024 09:54 AM EST History and Physical Notes * HPI (History of Present Illness) Category Sub-Category Detail Notes Category Not es Gastroenterology C/o frequen t loose stools and cramping. Has hx of diverticulosis by C-scope 04/2024. Thinks she may have IBS-D HPI Patient is here today for checkup and labs. Pt is not fasting. Pt states she needs refills on meds. Examination Category Sub-Category Detail Notes Category Not es General Examination HEENT: sclera and c onjunctiva clear, PERRLA, TMs normal Heart: regular with Gr 1/6 syst murmur Lungs: clear to auscultatio n Extremities: no leg edema General Appearance: NAD. Skin: Neurologic Exam: no focal deficits Neck: supple, no lymphaden opathy Oral cavity: no lesions, mucosa m oist and WNL, no erythema
--- OUTSIDE RECORDS SUMMARY | 2025-03-11 08:15 | XMS_ITS ---
Author Organization [facility] Address [address] [facility] [address] [phone] Care Team Providers Care Job Placement Counselor Name Role Phone Radha Pham Primary Care Provider Prasad Lin [phone] REASON FOR VISIT allergy injection Medications Medication SIG (Take, Route, Frequency, Duration) Notes Start Date End Date Status hydrOXYzine HCl 25 MG 1 tablet as needed Orally Once a day; Duration: 30 day(s) 02/20/2024 Active Crestor 10 MG 1 tab(s) orally once a day pt needs appt Active Ferrous Sulfate 325 (65 Fe) MG 1 tab(s) orally once daily 06/14/2022 Active Fish Oil 1000 MG 1 cap(s) orally 3 times a day Active Probiotic Formula 1-250 BILLION-MG 1 cap(s) orally once a day Active Vitamin D3 25 MCG (1000 UT) 1 tab(s) orally once a day Active Vitamin C 500 MG 1 tab(s) orally once a day Active Vitamin B-12 1000 MCG 1 cap(s) sublingua lly once a day Active oxyBUTYnin Chloride 5 MG 1 tablet Orally Two times a day Active Dicyclomine HCl 10 MG 1 capsule Orally Three times a day prn; Duration: 30 days 03/04/2025 Active Flonase Allergy Relief 50 MCG/ACT 1 spray(s) intranasally once a day Active Omeprazole 40 MG 1 tab(s) orally once a day Active Lisinopril 20 MG 1 tab(s) orally once a day Active Crestor 10 MG [...] once a day (in the evening) Active Omeprazole 40 MG 1 tab(s) orally once a day pt needs appt Active Lisinopril 20 MG 1 tab(s) orally once a day pt needs appt Active Encounters Encounter Location Date Provider Diagnosis [facility] [address] [facility] [address] [place], [place] [phone] 03/11/2025 Radha Pham Allergic rhinitis, unspecified seasonality, unspecified trigger J30.9 Assessments Encounter Date Diagnosis (ICD Code) Assessment Notes Treatment Notes Treatment Clinical Notes Section Notes 03/11/2025 Allergic rhinitis, unspecified seasonality, unspecified trigger (ICD-10 - J30.9) Plan Of Treatment No Information Medications Administered Medication Instructions Date of Administration Dosage Notes allergy 03/11/2025 0.10 mL mix 1- LA allergy 03/11/2025 0.10 mL mix 2- RA Progress Notes * MARILU ALEXANDERADOB:1950 (74 yo F)Acc No.[id number]:03/11/2025 Patient: BRONWYN CHAND Provider: Radha Pham M.D. :1950 A ge:74 Y S ex:Female Date:03/11/2025 Address:[address] [place], [place] [phone] Subjective: * Chief Complaints: * 1 . Allergy injection. * Medical History: * Medications: T aking Vitamin D3 25 MCG (1000 UT) Tablet [...] Notes to Pharmacist: pt needs appt, Taking metroNIDAZOLE 0.75 % Cream 1 truong applied [...] intranasally 2 times a day , Taking Lisinopril 20 MG Tablet 1 tab(s) orally once a day , Taking Crestor 10 MG Tablet 1 tab(s) orally once a day , Taking Omeprazole 40 MG Capsule Delayed Release 1 tab(s) orally once a day , Taking oxyBUTYnin Chloride 5 MG Tablet 1 tablet Orally Two times a day , Taking Dicyclomine HCl 10 MG Capsule 1 capsule Orally Three times a day prn , Medication List reviewed and reconciled with the patient Objective: * Vitals: Assessment: * Assessment: 1. A llergic rhinitis, unspecified seasonality, unspecified trigger - J30.9 (Primary) ? Plan: * Treatment: * Therapeutic Injections: allergy : 0.10 mL (Route: Subcutaneous) given by LEANDRO Negro on subcutaneus (Allergic rhinitis, unspecified seasonality, unspecified trigger) allergy : 0.10 mL (Route: Subcutaneous) given by LEANDRO Negro on subcutaneus (Allergic rhinitis, unspecified seasonality, unspecified trigger) * Procedure Codes: 9 5115 IMMUNOTHERAPY, ONE INJECTION * Images: Billing Information: * Visit Code: * Procedure Codes: 29056 IMMUNOTHERAPY, ONE INJECTION. * Electronic signature of Radha Pham MD on 03/21/2025 at 09:54 AM EST Sign off status: Pending * Provider: Radha Pham M.D. Date: 05/11/2024 Generated for Og palomo/Kassi/Scout on: 05/21/2024 09:54 AM EST
--- OUTSIDE RECORDS SUMMARY | 2025-03-17 08:45 | XMS_ITS ---
Author Organization [facility] Address [address] [facility] [address] [phone] Care Team Providers Care Beam Builder Name Role Phone Radha Pham Primary Care Provider Prasad Lin [phone] REASON FOR VISIT allergy shot Medications Medication [...] Active Encounters Encounter Location Date Provider Diagnosis [facility] [address] [facility] [address] [place], [place] [phone] 03/17/2025 Radha Pham Allergic rhinitis, unspecified J30.9 Assessments Encounter Date Diagnosis (ICD Code) Assessment Notes Treatment Notes Treatment Clinical Notes Section Notes 03/17/2025 Allergic rhinitis, unspecified (ICD-10 - J30.9) Plan Of Treatment No Information Medications Administered Medication Instructions Date of Administration Dosage Notes allergy 03/17/2025 0.10 mL vial 1- RA allergy 03/17/2025 0.10 mL VIAL 2- LA Progress Notes * MARILU ALEXANDERADOB:1950 (74 yo F)Acc No.[id number]:03/17/2025 Patient: BRONWYN CHAND Provider: Radha Pham M.D. :1950 A ge:74 Y S ex:Female Date:03/17/2025 Address:[address] [place], [place] [phone] Subjective: * Chief Complaints: * 1 . [...] (Allergic rhinitis, unspecified) * Procedure Codes: 9 5115 IMMUNOTHERAPY, ONE INJECTION * Images: Billing Information: * Visit Code: * Procedure Codes: 05180 IMMUNOTHERAPY, ONE INJECTION. * Electronic signature of Radha Pham MD on 03/21/2025 at 09:52 AM EST Sign off status: Pending * Provider: Radha Pham M.D. Date: 05/17/2024 Generated for Og palomo/Kassi/eTransmitting on: 05/21/2024 09:52 AM EST
--- OUTSIDE RECORDS SUMMARY | 2025-03-21 09:53 | XMS_ITS | Clinical Summary ---
Author Organization [facility] Address [address] [place] [address] Care Team Providers Care Mat Making Machine Tender Name Role Phone Provider, No Known Primary Care Provider Unavail able Social History Tobacco Use Types Packs/Day Years Used Date Smoking Tobacco: Never Assessed Comments No Sex and Gender Information Value Date Recorded Sex Assigned at Not on file Legal Sex Female 10:43 AM EST Gender Identity Not on file Sexual Orientation Not on file Plan of Treatment Health Maintenance Due Date Last Done Comments ANNUAL PHYSICAL 1950 DXA SCAN 1950 HEPATITIS C SCREENING 1950 TDAP/TD VACCINES (1 - Tdap) 1968 COLOGUARD 1994 COLON CANCER SCREENING 5 YEA R SIGMOIDOSCOPY 1994 COLONOSCOPY 1994 [address]AL CANCER SCREENING 1994 CT COLONOGRAPHY 1994 FECAL OCCULT BLOOD TEST 1994 FIT Testing (1 year) 1994 ZOSTER VACCINE (1 of 2) 11/29/1999 RSV Vaccine - Adults (1 - 1- dose 75+ series) 2024 INFLUENZA VACCINE 12/06/2024 01/14/2022, , 01/08/2020, Additional history exists COVID-19 Vaccine ( - 2024-2 6 season) 2025 03/24/2021, 07/30/2020, 07/01/2020 Pneumococcal Vaccine 50+ Completed 01/17/2023, 08/08 MAMMOGRAM Discontinued 06/03/2024, 03/08, 09/27/2023, Additional history exists Procedures Procedure Name Priority Date/Time Associated Diagnosis Comments MAMMO DIAGNOSTIC DIGITAL TOMOSYNTHESIS LEFT W CAD Routine 06/03/2024 3:02 PM EST Abnormal mammogram from Last 3 Months or Most Recently Relevant to Health Maintenance Results * Mammo Diagnostic Digital Tomosynthesis Left With CAD (06/03/2024 3:02 PM EST) Anatomical Region Laterality Modality Breast Left Mammography 06/03/2024 2:21 PM EST Impressions 06/03/2024 2:46 PM EST Benign left mammogram. RECOMMENDATION: Resume annual screening mammography. The patient's next bilateral screening mammogram is due after 03/26/2025. BI-RADS CATEGORY: 2, BENIGN. CAD was utilized. The standard false-negative rate of mammography is between 10% and 25%. Complex patterns or increased breast density will markedly elevate the false-negative rate of mammography. A letter, in lay terminology, with the results of this exam was given to the patient at the time of the visit. This report was finalized on 06/03/2024 2:[address] Johana Roberson MD. Narrative 06/03/2024 2:46 PM EST LEFT DIAGNOSTIC MAMMOGRAM HISTORY: 73-year-old patient presents for a second opinion regarding a biopsy recommendation for a mass in the left 3 o'clock position. She has no personal or family history of breast cancer. TECHNIQUE: Left low dose, full field digital CC, ML, and MLO views were obtained with tomosynthesis. COMPARISON: Outside mammograms from [facility] 11/20/2019, 12/09/2020, 12/22/2021, 02/15/2023, 03/06/2023, 03/22/2023, 09/27/2023, and 03/26/2024. FINDINGS: There are scattered areas of fibroglandular density. The fibroglandular pattern is stable. There is a nodular asymmetry in the mid aspect of the ML view at the level of the nipple is stable compared to baseline mammographic imaging dated 11/20/2019. The fibroglandular pattern is stable and unremarkable on routine CC and MLO imaging. There are no suspicious masses, worrisome calcifications, areas of architectural distortion, or other secondary signs of malignancy. us Martin Pham MD IMG MAMMOGRAPHY ORDERA BLES Final Result from Last 3 Months or Most Recently Relevant to Health Maintenance Insurance Member Subscriber Plan / Payer (Ef fective 2024-Present) Name:Kimberly Milton Relation to Subscriber:Self Name:Kimberly Milton Payer ID:[id number] (NAIC) Type:Not on file Address: [place] [id number] [facility] Medicare Advant[employer] PPO Care Teams Mat Making Machine Tender Relationship Specialty Start Date End Date Provider, [place] [address] PCP - General 05/21/24
[2025-03-21 11:38] LABS: Alanine Aminotransferase 14 U/L (12-78); Albumin Level 4.1 g/dl (3.5-5.0); Albumin/Globulin Ratio 2.0 (1.1-1.8); Alkaline Phosphatase 66 U/L (38-126); Anion Gap 9.4 mEq/L (5-15); Aspartate Amino Transferase 27 U/L (14-36); Bilirubin,Total 0.4 mg/dl (0.2-1.3); Blood Urea Nitrogen 13 mg/dl (7-17); Calcium 9.1 mg/dl (8.4-10.2); Carbon Dioxide 27 mmol/L (22.0-30.0); Chloride 103 mmol/L (98-107); Cholesterol 91 mg/dl (140-200); Creatinine,Serum 0.80 mg/dl (0.52-1.04); Estimated Glomerular Filt Rate 70 ml/min (>60); GFR (African American) 85 ML/MIN (>60); Globulin 2.1 g/dL (1.3-3.2); Glucose 95 mg/dl (74-100); HDL Cholesterol 36 mg/dl (40-60); Potassium 4.4 mmoL/L (3.5-5.1); Sodium 135 mmol/L (136-145); Total Protein,Serum 6.2 g/dl (6.3-8.2); Triglycerides 178 mg/dl (30-150)
== END 2025-03-21 23:59 | disposition home or self-care (01) ==
LOC: LAB 09:49
PROVIDERS: PCP Family Medicine; Visit Provider Family Medicine
DX: E78.5 Hyperlipidemia, unspecified (principal); I10 Essential (primary) hypertension
CPT/HCPCS: 36415; 80053; 80061

== ENCOUNTER 2025-04-22 15:25 | Emergency (ER) | payer MEDICARE, SELFPAY ==
--- OUTSIDE RECORDS SUMMARY | 2025-02-17 08:30 | XMS_ITS ---
[facility] [address] [facility] [address] [phone] Care Team Providers Care Touch Up Painter Hand Name Role Phone Radha Pham Primary Care Provider Prasad Lin [phone] REASON FOR VISIT allergy injection Medications Medication [...] Active Encounters Encounter Location Date Provider Diagnosis [facility] [address] [place] [phone] 02/17/2025 Radha Pham Allergic rhinitis, unspecified J30.9 Assessments Encounter Date Diagnosis (ICD Code) Assessment Notes Treatment Notes Treatment Clinical Notes Section Notes 02/17/2025 Allergic rhinitis, unspecified (ICD-10 - J30.9) Plan Of Treatment No Information Medications Administered Medication Instructions Date of Administration Dosage Notes allergy 02/17/2025 0.4 mL vial 1: RA allergy 02/17/2025 0.4 mL vial 2: LA Progress Notes * Marcy ALEXANDERaDOB:1950 (74 yo F)Acc No.[id number]:02/17/2025 Patient: Kimberly CHAND Provider: Radha Pham M.D. :1950 A ge:74 Y S ex:Female Date:02/17/2025 Address:[address] [place], [place] [id number] Subjective: * Chief Complaints: * 1 . [...] Information: * Visit Code: * Procedure Codes: 57357 IMMUNOTHERAPY INJECTIONS. * Electronic signature of Radha Pham MD on 04/22/2025 at 04:00 PM EST Sign off status: Pending * Provider: Radha Pham M.D. Date: Generated for Og palomo/Kassi/Scout on: 06/23/2024 04:00 PM EST
--- OUTSIDE RECORDS SUMMARY | 2025-02-24 08:30 | XMS_ITS ---
Author Organization [facility] Address [address] [facility] [address] [place] [phone] Care Team Providers Care Silver Brazer Name Role Phone Radha Pham Primary Care Provider Prasad Lin [phone] REASON FOR VISIT allergy shot Encounters Encounter Location Date Provider Diagnosis [facility] [address] [facility] [address] [place] [phone] 02/24/2025 Radha Pham Allergic rhinitis, unspecified seasonality, unspecified trigger J30.9 Assessments Encounter Date Diagnosis (ICD Code) Assessment Notes Treatment Notes Treatment Clinical Notes Section Notes 02/24/2025 Allergic rhinitis, unspecified seasonality, unspecified trigger (ICD-10 - J30.9) Plan Of Treatment No Information Medications Administered Medication Instructions Date of Administration Dosage Notes allergy 02/24/2025 0.05 mL Vial 1 Left Ar m allergy 02/24/2025 0.05 mL Vial 2 Right A rm Progress Notes * Marcy ALEXANDERaDOB:1950 (74 yo F)Acc No.[id number]:02/24/2025 Patient: Kimberly CHAND Provider: Radha Pham M.D. :1950 A ge:74 Y S ex:Female Date:02/24/2025 [address] [id number] Subjective: * Chief Complaints: * 1 . Allergy shot. * Medical History: Objective: * Vitals: Assessment: * Assessment: 1. A llergic rhinitis, unspecified seasonality, unspecified trigger - J30.9 (Primary) ? Plan: * Treatment: * Therapeutic Injections: allergy : 0.05 mL (Route: Subcutaneous) given by Vannessa Oh on left deltoid (Allergic rhinitis, unspecified seasonality, unspecified trigger) allergy : 0.05 mL (Route: Subcutaneous) given by Vannessa Oh on right deltoid (Allergic rhinitis, unspecified seasonality, unspecified trigger) * Procedure Codes: 9 5117 IMMUNOTHERAPY INJECTIONS * Images: Billing Information: * Visit Code: * Procedure Codes: 10889 IMMUNOTHERAPY INJECTIONS. * Electronic signature of Radha Pham MD on 04/22/2025 at 04:02 PM EST Sign off status: Pending * Provider: Radha Pham M.D. Date: 1 Generated for Og palomo/Kassi/Scout on: 06/23/2024 04:02 PM EST
--- OUTSIDE RECORDS SUMMARY | 2025-03-04 08:30 | XMS_ITS ---
Author Organization [facility] Address [address] [facility] [address] [phone] Care Team Providers Care Park Interpretive Specialist Name Role Phone Radha Pham Primary Care Provider Prasad Lin [phone] Allergies Allergen (clinical drug ingredient) Drug/Non Drug [...] Status Risk Notes Problem Irritable bowel syndrome (52403966) IBS (irritable bowel syndrome) (K58.9) Active confirmed Vital Signs Blood pressure systolic 150 mm Hg 03/04/20 25 Blood pressure diastolic 70 mm Hg 025 Heart Rate 65 /min 03/04/2025 Height 62 in 03/04/2025 Weight 140.2 lbs 03/04/2025 BMI 25.64 kg/m2 03/04/2025 Encounters Encounter Location Date Provider [facility] [address] [place] [phone] 03/04/2025 Radha Pham Hypertension I10 ; Dyslipidemia [...] mL vial 2- LA Progress Notes * Marcy ALEXANDERaDOB:1950 (74 yo F)Acc No.[id number]:03/04/2025 Progress Notes Patient: Kimberly CHAND Provider: Radha Pham M.D. :1950 A ge:74 Y S ex:Female Date:03/04/2025 Address:[address] [place], [place] [phone] Subjective: * Chief Complaints: * 1 . [...] : 0.05 mL (Route: Subcutaneous) given by Ca Landeros , EPE on left deltoid (Allergic rhinitis, unspecified) * Labs: * L ab: H-Lipid Panel L ab: H-CMP * Procedure Codes: G 2211 Complex e/[place], [address] IMMUNOTHERAPY INJECTIONS, 1036F TOBACCO NON-USER * Follow Up: 6 Months * Images: Billing Information: * Visit Code: 09158 Office Visit, Est Pt., Level 4. Modifiers: 25 * Procedure Codes: G2211 Complex e/[place]. [address] IMMUNOTHERAPY INJECTIONS. 1036F TOBACCO NON-USER. * Electronic signature of Radha Pham MD on 04/22/2025 at 04:01 PM EST Sign off status: Pending * Provider: Radha Pham M.D. Date: Generated for Og palomo/Faxing/eTransmitting on: 1 06/23/2024 04:01 PM EST History and Physical Notes * HPI [...]
--- OUTSIDE RECORDS SUMMARY | 2025-03-11 08:15 | XMS_ITS ---
Author Organization [facility] Address [address] [facility] [address] [phone] Care Team Providers Care Residential Mortgage Manager Name Role Phone Radha Pham Primary Care Provider Prasad Lin [phone] REASON FOR VISIT allergy injection Medications Medication [...] Active Encounters Encounter Location Date Provider Diagnosis [facility] [address] [facility] [address] [place], [place] [phone] 03/11/2025 Radha Pham Allergic rhinitis, unspecified seasonality, [...] mL mix 2- RA Progress Notes * Marcy ALEXANDERaDOB:1950 (74 yo F)Acc No.[id number]:03/11/2025 Patient: Kimberly CHAND Provider: Radha Pham M.D. :1950 A ge:74 Y S ex:Female Date:03/11/2025 Address:[address] [place], [place] [phone] Subjective: * Chief Complaints: * 1 . [...] Information: * Visit Code: * Procedure Codes: 44223 IMMUNOTHERAPY INJECTIONS. * Electronic signature of Radha Pham MD on 04/22/2025 at 04:01 PM EST Sign off status: Pending * Provider: Radha Pham M.D. Date: 05/11/2024 Generated for Og palomo/Kassi/Scout on: 06/23/2024 04:01 PM EST
--- OUTSIDE RECORDS SUMMARY | 2025-03-17 08:45 | XMS_ITS ---
Author Organization [facility] Address [address] [facility] [address] [phone] Care Team Providers Care Pipe Layer Helper Name Role Phone Radha Pham Primary Care Provider [phone] Prasad Lin [phone] REASON FOR VISIT allergy shot Medications Medication SIG (Take, Route, Frequency, Duration) Notes Start Date End Date Status Crestor 10 MG 1 tab(s) orally once a day pt needs appt Active hydrOXYzine HCl 25 MG 1 tablet as needed Orally Once a day; Duration: 30 day(s) 02/20/2024 Active Ferrous Sulfate 325 (65 Fe) MG 1 tab(s) orally once daily 06/14/2022 Active Probiotic Formula 1-250 BILLION-MG 1 cap(s) orally once a day Active Fish Oil 1000 MG 1 cap(s) orally 3 times a day Active Vitamin D3 25 MCG (1000 UT) 1 tab(s) orally once a day Active Dicyclomine HCl 10 MG 1 capsule Orally Three times a day prn; Duration: 30 days 03/04/2025 Active oxyBUTYnin Chloride 5 MG 1 tablet Orally Two times a day Active Vitamin B-12 1000 MCG 1 cap(s) sublingua lly once a day Active Vitamin C 500 MG 1 tab(s) orally once a day Active Omeprazole 40 MG 1 tab(s) orally once a day Active Crestor 10 MG 1 tab(s) orally once a day Active Lisinopril 20 MG 1 tab(s) orally once a day Active Azelastine HCl 137 MCG/SPRAY 4 sprays intranasally 2 times a day Active Flonase Allergy Relief 50 MCG/ACT 1 spray(s) intranasally once a day Active Singulair 10 MG 1 tab(s) orally once a day (in the evening) Active metroNIDAZOLE 0.75 % 1 truong applied topically 2 times a day Active Lisinopril 20 MG 1 tab(s) orally once a day pt needs appt Active Omeprazole 40 MG 1 tab(s) orally once a day pt needs appt Active Levocetirizine Dihydrochloride 5 MG 1 tab(s) orally once a day (in the evening) Active Encounters Encounter Location Date Provider Diagnosis [facility] [address] [facility] [address] [place], [place] [phone] 03/17/2025 Radha Pham Allergic rhinitis, unspecified J30.9 Assessments Encounter Date Diagnosis (ICD Code) Assessment Notes Treatment Notes Treatment Clinical Notes Section Notes 03/17/2025 Allergic rhinitis, unspecified (ICD-10 - J30.9) Plan Of Treatment No Information Medications Administered Medication Instructions Date of Administration Dosage Notes allergy 03/17/2025 0.10 mL vial 1- RA allergy 03/17/2025 0.10 mL VIAL 2- LA Progress Notes * Marcy ALEXANDERaDOB:1950 (74 yo F)Acc No.[id number]:03/17/2025 Patient: Kimberly CHAND Provider: Radha Pham M.D. :1950 A ge:74 Y S ex:Female Date:03/17/2025 Address:[address] [place], [place] [phone] Subjective: * Chief Complaints: * 1 . Allergy shot. * Medical History: * Medications: T aking [...] appt, Taking metroNIDAZOLE 0.75 % Cream 1 truogn applied topically 2 times a day , [...] by LEANDRO Negro on subcutaneus (Allergic rhinitis, unspecified) allergy : 0.10 mL (Route: Subcutaneous) given by LEANDRO Negro on subcutaneus (Allergic rhinitis, unspecified) * Procedure Codes: 9 5117 IMMUNOTHERAPY INJECTIONS * Images: Billing Information: * Visit Code: * Procedure Codes: 97319 IMMUNOTHERAPY INJECTIONS. * Electronic signature of Radha Pham MD on 04/22/2025 at 04:00 PM EST Sign off status: Pending * Provider: Radha Pham M.D. Date: 05/17/2024 Generated for Og palomo/Kassi/Scout on: 1 06/23/2024 04:00 PM EST
--- OUTSIDE RECORDS SUMMARY | 2025-03-24 08:20 | XMS_ITS ---
[facility] Address [address] [facility] [address] [id number] Care Team Providers Care Strategic Marketing Specialist Name Role Phone Radha Pham Primary Care Provider Prasad Lin Unavailable [phone] REASON FOR VISIT allergy shot Medications Medication SIG (Take, Route, Frequency, Duration) Notes Start Date End Date Status Lisinopril 20 MG 1 tab(s) orally once a day Unknown Crestor 10 MG 1 tab(s) orally once a day Unknown Omeprazole 40 MG 1 tab(s) orally once a day Unknown oxyBUTYnin Chloride 5 MG 1 tablet Orally Two times a day Unknown Dicyclomine HCl 10 MG 1 capsule Orally Three times a day prn; Duration: 30 days 03/04/2025 Unknown Flonase Allergy Relief 50 MCG/ACT 1 spray(s) intranasally once a day Unknown Azelastine HCl 137 MCG/SPRAY 4 sprays intranasally 2 times a day Unknown metroNIDAZOLE 0.75 % 1 truong applied topically 2 times a day Unknown Singulair 10 MG 1 tab(s) orally once a day (in the evening) Unknown Levocetirizine Dihydrochloride 5 MG 1 tab(s) orally once a day (in the evening) Unknown Ferrous Sulfate 325 (65 Fe) MG 1 tab(s) orally once daily 06/14/2022 Unknown hydrOXYzine HCl 25 MG 1 tablet as needed Orally Once a day; Duration: 30 day(s) 02/20/2024 Unknown Crestor 10 MG 1 tab(s) orally once a day pt needs appt Unknown Omeprazole 40 MG 1 tab(s) orally once a day pt needs appt Unknown Lisinopril 20 MG 1 tab(s) orally once a day pt needs appt Unknown Vitamin B-12 1000 MCG 1 cap(s) sublingually once a day Unknown Fish Oil 1000 MG 1 cap(s) orally 3 times a day Unknown Probiotic Formula 1-250 BILLION-MG 1 cap(s) orally once a day Unknown Vitamin D3 25 MCG (1000 UT) 1 tab(s) orally once a day Unknown Vitamin C 500 MG 1 tab(s) orally once a day Unknown Encounters Encounter Location Date Provider Diagnosis [facility] [address] [facility] [address] [place], [place] [phone] 03/24/2025 Radha Pham Allergic rhinitis, unspecified seasonality, unspecified trigger J30.9 Assessments Encounter Date Diagnosis (ICD Code) Assessment Notes Treatment Notes Treatment Clinical Notes Section Notes 03/24/2025 Allergic rhinitis, unspecified seasonality, unspecified trigger (ICD-10 - J30.9) Plan Of Treatment No Information Medications Administered Medication Instructions Date of Administration Dosage Notes allergy 03/24/2025 0.2 mL mix 1- LA allergy 03/24/2025 0.2 mL mix 2-RA Progress Notes * Marcy ALEXANDERaDOB:1950 (74 yo F)Acc No.[id number]:03/24/2025 Patient: Kimberly CHAND Provider: Radha Pham M.D. :1950 A ge:74 Y S ex:Female Date:03/24/2025 Address:[address] [place], [place] [phone] Subjective: * Chief Complaints: * 1 . Allergy shot. * Medical History: * Medications: U nknown Vitamin D3 25 MCG (1000 UT) Tablet 1 tab(s) orally once a day , Unknown Vitamin C 500 MG Tablet 1 tab(s) orally once a day , Unknown Vitamin B-12 1000 MCG Tablet 1 cap(s) sublingually once a day , Unknown Fish Oil 1000 MG Capsule 1 cap(s) orally 3 times a day , Unknown Probiotic Formula 1-250 BILLION-MG Capsule 1 cap(s) orally once a day , Unknown Ferrous Sulfate 325 (65 Fe) MG Tablet 1 tab(s) orally once daily , Unknown hydrOXYzine HCl 25 MG Tablet 1 tablet as needed Orally Once a day , Unknown Crestor 10 MG Tablet 1 tab(s) orally once a day , Notes to Pharmacist: pt needs appt, Unknown Omeprazole 40 MG Capsule Delayed Release 1 tab(s) orally once a day , Notes to Pharmacist: pt needs appt, Unknown Lisinopril 20 MG Tablet 1 tab(s) orally once a day , Notes to Pharmacist: pt needs appt, Unknown metroNIDAZOLE 0.75 % Cream 1 truong applied topically 2 times a day , Unknown Singulair 10 MG Tablet 1 tab(s) orally once a day (in the evening) , Unknown Levocetirizine Dihydrochloride 5 MG Tablet 1 tab(s) orally once a day (in the evening) , Unknown Flonase Allergy Relief 50 MCG/ACT Suspension 1 spray(s) intranasally once a day , Unknown Azelastine HCl 137 MCG/SPRAY Solution 4 sprays intranasally 2 times a day , Unknown Lisinopril 20 MG Tablet 1 tab(s) orally once a day , Unknown Crestor 10 MG Tablet 1 tab(s) orally once a day , Unknown Omeprazole 40 MG Capsule Delayed Release 1 tab(s) orally once a day , Unknown oxyBUTYnin Chloride 5 MG Tablet 1 tablet Orally Two times a day , Unknown Dicyclomine HCl 10 MG Capsule 1 capsule Orally Three times a day prn Objective: * Vitals: Assessment: * Assessment: 1. A llergic rhinitis, unspecified seasonality, unspecified trigger - J30.9 (Primary) ? Plan: * Treatment: * Therapeutic Injections: allergy : 0.2 mL (Route: Subcutaneous) given by Donna Lujan on subcutaneus (Allergic rhinitis, unspecified seasonality, unspecified trigger) allergy : 0.2 mL (Route: Subcutaneous) given by Donna Lujan on subcutaneus (Allergic rhinitis, unspecified seasonality, unspecified trigger) * Procedure Codes: 9 5117 IMMUNOTHERAPY INJECTIONS * Images: Billing Information: * Visit Code: * Procedure Codes: 16689 IMMUNOTHERAPY INJECTIONS. * Electronic signature of Radha Pham MD on 04/22/2025 at 04:00 PM EST Sign off status: Pending * Provider: Radha Pham M.D. Date: 05/24/2024 Generated for Og palomo/Kassi/Scout on: 1 06/23/2024 04:00 PM EST
--- OUTSIDE RECORDS SUMMARY | 2025-03-31 08:20 | XMS_ITS ---
Author Organization [facility] Address [address] [facility] [address] [id number] Care Team Providers Care Waste Machine Tender Name Role Phone Radha Pham Primary Care Provider Prasad Lin [phone] REASON FOR VISIT allergy shot Medications Medication [...] tablet Orally Two times a day Active Levocetirizine Dihydrochloride 5 MG 1 tab(s) orally once a day (in the evening) Active Singulair 10 MG 1 tab(s) orally once a day (in the evening) Active Azelastine HCl 137 MCG/SPRAY 4 sprays intranasally 2 times a day Active Flonase Allergy Relief 50 MCG/ACT 1 spray(s) intranasally once a day Active metroNIDAZOLE 0.75 % 1 truong applied topically 2 times a day Active Ferrous Sulfate 325 (65 Fe) MG 1 tab(s) orally once daily 06/14/2022 Active hydrOXYzine HCl 25 MG 1 tablet as needed Orally Once a day; Duration: 30 day(s) 02/20/2024 Active Omeprazole 40 MG 1 tab(s) orally once a day pt needs appt Active Crestor 10 MG 1 tab(s) orally once a day pt needs appt Active Lisinopril 20 MG 1 tab(s) orally once a day pt needs appt Active Probiotic Formula 1-250 BILLION-MG 1 cap(s) orally once a day Active Vitamin C 500 MG 1 tab(s) orally once a day Active Vitamin D3 25 MCG (1000 UT) 1 tab(s) orally once a day Active Fish Oil 1000 MG 1 cap(s) orally 3 times a day Active Vitamin B-12 1000 MCG 1 cap(s) sublingua lly once a day Active Encounters Encounter Location Date Provider Diagnosis [facility] [address] [place], [place] [id number] 03/31/2025 Radha Pham Allergic rhinitis, unspecified J30.9 Assessments Encounter Date Diagnosis (ICD Code) Assessment Notes Treatment Notes Treatment Clinical Notes Section Notes 03/31/2025 Allergic rhinitis, unspecified (ICD-10 - J30.9) Plan Of Treatment No Information Medications Administered Medication Instructions Date of Administration Dosage Notes allergy 03/31/2025 0.20 mL mix 1 DP- RA allergy 03/31/2025 0.2 mL mix 2 MC- LA Progress Notes * Marcy ALEXANDERaDOB:1950 (74 yo F)Acc No.[id number]:03/31/2025 Patient: Kimberly CHAND Provider: Radha Pham M.D. :1950 A ge:74 Y S ex:Female Date:03/31/2025 Address:[address] [place], [place] [phone] Subjective: * Chief Complaints: * 1 . [...] on subcutaneus (Allergic rhinitis, unspecified) allergy : 0.2 mL (Route: Subcutaneous) given by LEANDRO Negro on subcutaneus (Allergic rhinitis, unspecified) * Procedure Codes: 9 5117 IMMUNOTHERAPY INJECTIONS * Images: Billing Information: * Visit Code: * Procedure Codes: 63422 IMMUNOTHERAPY INJECTIONS. * Electronic signature of Radha Pham MD on 04/22/2025 at 04:00 PM EST Sign off status: Pending * Provider: Radha Pham M.D. Date: 05/31/2024 Generated for Og palomo/Kassi/eTransmitting on: 1 06/23/2024 04:00 PM EST
--- OUTSIDE RECORDS SUMMARY | 2025-04-07 08:30 | XMS_ITS ---
[facility] [address] [facility] [address] [id number] Care Team Providers Care Ferruler Name Role Phone Radha Pham Primary Care Provider [phone] Prasad Lin [phone] REASON FOR VISIT allergy shot Medications Medication SIG (Take, Route, Frequency, Duration) Notes Start Date End Date Status Levocetirizine Dihydrochloride 5 MG 1 tab(s) orally [...] cap(s) orally 3 times a day Active Crestor 10 MG 1 [...] tablet Orally Two times a day Active Lisinopril 20 MG 1 tab(s) orally once a day Active Azelastine HCl 137 MCG/SPRAY 4 sprays intranasally 2 times a day Active Flonase Allergy Relief 50 MCG/ACT 1 spray(s) intranasally once a day Active Omeprazole 40 MG 1 tab(s) orally once a day Active Crestor 10 MG 1 tab(s) orally once a day Active Encounters Encounter Location Date Provider Diagnosis [facility] [address] [facility] [address] [place], [place] [id number] 04/07/2025 Radha Pham Allergic rhinitis, unspecified seasonality, unspecified trigger J30.9 Assessments Encounter Date Diagnosis (ICD Code) Assessment Notes Treatment Notes Treatment Clinical Notes Section Notes 04/07/2025 Allergic rhinitis, unspecified seasonality, unspecified trigger (ICD-10 - J30.9) Plan Of Treatment No Information Medications Administered Medication Instructions Date of Administration Dosage Notes allergy 04/07/2025 0.30 mL mix 1- LA allergy 04/07/2025 0.30 mL mix 2- RA Progress Notes * Marcy ALEXANDERaDOB:1950 (74 yo F)Acc No.[id number]:04/07/2025 Patient: Kimberly CHAND Provider: Radha Pham M.D. :1950 A ge:74 Y S ex:Female Date:04/07/2025 Address:[address] [place], [place] [phone] Subjective: * Chief Complaints: * 1 . [...] 0.30 mL (Route: Subcutaneous) given by Donna uLjan on subcutaneus (Allergic rhinitis, unspecified seasonality, unspecified trigger) * Procedure Codes: 9 5117 IMMUNOTHERAPY INJECTIONS * Images: Billing Information: * Visit Code: * Procedure Codes: 93677 IMMUNOTHERAPY INJECTIONS. * Electronic signature of Radha Pham MD on 04/22/2025 at 04:01 PM EST Sign off status: Pending * Provider: Radha Pham M.D. Date: 06/08/2024 Generated for Og palomo/Kassi/Scout on: 06/23/2024 04:01 PM EST
--- OUTSIDE RECORDS SUMMARY | 2025-04-14 08:45 | XMS_ITS ---
[facility] Address [address] [facility] [address] [id number] Care Team Providers Care Pmo Analyst Name Role Phone Radha Pham Primary Care Provider Prasad Lin [phone] REASON FOR VISIT allergy shot Medications Medication [...] tablet Orally Two times a day Active Flonase Allergy Relief 50 MCG/ACT 1 spray(s) intranasally once a day Active Levocetirizine Dihydrochloride 5 MG 1 tab(s) orally once a day (in the evening) Active Azelastine HCl 137 MCG/SPRAY 4 sprays intranasally 2 times a day Active Singulair 10 MG 1 tab(s) orally once a day (in the evening) Active metroNIDAZOLE 0.75 % 1 truong applied topically 2 times a day Active hydrOXYzine HCl 25 MG 1 tablet as needed Orally Once a day; Duration: 30 day(s) 02/20/2024 Active Ferrous Sulfate 325 (65 Fe) MG 1 tab(s) orally once daily 06/14/2022 Active Omeprazole 40 MG 1 tab(s) orally once a day pt needs appt Active Crestor 10 MG 1 tab(s) orally once a day pt needs appt Active Lisinopril 20 MG 1 tab(s) orally once a day pt needs appt Active Vitamin B-12 1000 MCG 1 cap(s) sublingua lly once a day Active Vitamin C 500 MG 1 tab(s) orally once a day Active Probiotic Formula 1-250 BILLION-MG 1 cap(s) orally once a day Active Fish Oil 1000 MG 1 cap(s) orally 3 times a day Active Vitamin D3 25 MCG (1000 UT) 1 tab(s) orally once a day Active Encounters Encounter Location Date Provider Diagnosis [facility] [address] [place], [place] [phone] 04/14/2025 Radha Pham Allergic rhinitis, unspecified seasonality, unspecified trigger J30.9 Assessments Encounter Date Diagnosis (ICD Code) Assessment Notes Treatment Notes Treatment Clinical Notes Section Notes 04/14/2025 Allergic rhinitis, unspecified seasonality, unspecified trigger (ICD-10 - J30.9) Plan Of Treatment No Information Medications Administered Medication Instructions Date of Administration Dosage Notes allergy 04/14/2025 0.30 mL mix 1- RA allergy 04/14/2025 0.30 mL mix 2- LA Progress Notes * Marcy ALEXANDERaDOB:1950 (74 yo F)Acc No.[id number]:04/14/2025 Patient: Kimberly CHAND Provider: Radha Pham M.D. :1950 A ge:74 Y S ex:Female Date:04/14/2025 Address:[address] [place], [place] [phone] Subjective: * Chief Complaints: * 1 . [...] : 0.30 mL (Route: Subcutaneous) given by LEANDRO Negro on subcutaneus (Allergic rhinitis, unspecified seasonality, unspecified trigger) allergy : 0.30 mL (Route: Subcutaneous) given by LEANDRO Negro on subcutaneus (Allergic rhinitis, unspecified seasonality, unspecified trigger) * Procedure Codes: 9 5117 IMMUNOTHERAPY INJECTIONS * Images: Billing Information: * Visit Code: * Procedure Codes: 58618 IMMUNOTHERAPY INJECTIONS. * Electronic signature of Radha Pham MD on 04/22/2025 at 04:00 PM EST Sign off status: Pending * Provider: Radha Pham M.D. Date: 06/15/2024 Generated for Og palomo/Kassi/Scout on: 06/23/2024 04:00 PM EST
[2025-04-22] VITALS (12 sets, daily range): BP systolic 168–199; BP diastolic 57–74; PULSE 64–106; RESP 19–20; TEMP 36.7–37; O2SAT 93–97; BMI 25.3
--- NOTE | 2025-04-22 15:58 | HMH.EDGENADL ---
Discharge Plan Disposition Chief Complaint: Abdominal Pain Prescriptions Prescriptions: No Action fluticasone propionate 50 mcg/actuation spray,suspension 1 spray INTRANASAL ONCE rosuvastatin 10 mg tablet 10 mg PO ONCE ascorbic acid (vitamin C) 250 mg tablet,chewable 250 mg PO BID calcium carbonate [Calcium 500] 500 mg calcium (1,250 mg) tablet 500 mg PO BID azelastine 137 mcg (0.1 %) spray,non-aerosol 137 mcg intranasal DAILY oxybutynin chloride 5 mg tablet 5 mg PO DAILY omeprazole 40 mg capsule,delayed release(DR/EC) 40 mg PO DAILY lisinopril 20 mg tablet 20 mg PO DAILY levocetirizine 5 mg tablet 5 mg PO DAILY montelukast 10 mg tablet 10 mg PO DAILY methylprednisolone [Medrol (Panda)] 4 mg tablets,dose pack See Rx Instructions PO PER PKG DIR Qty: 21 0RF Rx Instructions: PO PER PKG DIR for 6 days sodium,potassium,mag sulfates [Suprep Bowel Prep Kit] 17.5-3.13-1.6 gram recon soln See Rx Instructions PO .COMPLEX Qty: 354 0RF Rx Instructions: DILUTE; drink full amount early evening before AND next morning at least 2 hr before procedure; follow w 960 mL water PO Referrals Follow up/Referrals: Martin Pham MD [Primary Care Provider, Medical] - See instructions Stand Alone Forms Stand Alone Forms: Transfer Record - ED Instructions Patient Instructions: DI for Acute Abdominal Pain Print Language Print Language: Hong Konger Discharge ED Provider: Ayla Arreola General Adult HPI General Chief complaint: Abdominal Pain Stated complaint: Sent from [facility] office for ? appenticitis Time Seen by Provider: 04/22/25 15:58 History of Present Illness HPI narrative: Patient is a 74-year-old female with no significant past medical history who presented to the emergency department with acute onset suprapubic and right lower quadrant abdominal pain that woke her up at 2:00 this morning. Patient states that the pain is currently a 9 out of 10. Patient states that her pain does not radiate. Patient denies any fevers cough chills or runny nose. Patient denies any recent trauma. Patient has not otherwise been sick recently. Patient denies any nausea or vomiting. Patient denies any diarrhea. Patient denies any significant medical problems. Patient does not take any daily medications. Related Data Home Medications ?Medication ?Instructions ?Recorded ?Confirmed ascorbic acid (vitamin C) 250 mg 250 mg PO BID 07/19/17 07/03/24 chewable tablet calcium carbonate (Calcium 500) 500 mg PO BID 07/19/17 07/03/24 fluticasone propionate 50 1 spray intranasal ONCE 07/19/17 07/03/24 mcg/actuation nasal spray,suspension rosuvastatin 10 mg tablet 10 mg PO ONCE 07/19/17 07/03/24 azelastine 137 mcg (0.1 %) nasal 137 mcg intranasal DAILY 03/11/24 07/03/24 spray levocetirizine 5 mg tablet 5 mg PO DAILY 03/11/24 07/03/24 lisinopril 20 mg tablet 20 mg PO DAILY 03/11/24 07/03/24 montelukast 10 mg tablet 10 mg PO DAILY 03/11/24 07/03/24 omeprazole 40 mg capsule,delayed 40 mg PO DAILY 03/11/24 07/03/24 release oxybutynin chloride 5 mg tablet 5 mg PO DAILY 03/11/24 07/03/24 Previous Rx's ?Medication ?Instructions ?Recorded sodium,potassium,mag sulfates 17.5 See Rx Instructions PO .COMPLEX 04/12/24 gram-3.13 gram-1.6 gram oral soln #354 mL (Suprep Bowel Prep Kit) methylprednisolone 4 mg tablets in See Rx Instructions PO PER PKG DIR 07/04/24 a dose pack (Medrol (Panda)) #21 tabs Allergies Allergy/AdvReac Type Severity Reaction Status Date / Time From Penicillin G Sodium Allergy Unknown Hives Uncoded 07/03/24 14:47 Loratadine Allergy Unknown Unknown Uncoded 07/03/24 14:47 allergy reaction Penicillin Allergy Unknown Hives Uncoded 07/03/24 14:47 PFSH [facility] Disclaimer: The information contained in this section may have been updated after the patient was seen, as this information can be updated by other users. Medical History GERD (gastroesophageal reflux disease) High cholesterol Hypertension Sinus headache Nasal congestion Congestion of both ears Acute sinusitis Surgical History History of cholecystectomy History of tonsillectomy Family History Other No significant family history Social History Smoking Status: Former smoker tobacco type: cigarettes alcohol intake: never substance use type: denies use current occupational status: retired Travel in the last 8 weeks?: None caffeine: Yes Have you lived/traveled outside [place] in past 30 days?: No Contact w/someone who lives/traveled outside US past 30 days?: No Exposure to someone with infectious disease in past 14 days?: No Do you have a fever (greater than 100.4 F or 38 C)?: No Have you tested positive for COVID-19?: No Exposed to someone with COVID-19 in past 14 days?: No Do you have a sore throat?: No Do you have a cough?: No Do you have any weakness?: No Do you have any diarrhea?: No Are you experiencing any unusual bleeding?: No Do you have any muscle aches/pain?: No Do you have any abdominal pain?: No Are you experiencing loss of taste or smell?: No Other Medical History Have you received the Flu Vaccine for this season: Yes Have you received the Pneumonia Vaccine: Yes ROS Obtained: Yes All systems reviewed & no additional complaints except as documented and Yes Systems reviewed as appropriate & no additional complaints except as documented Physical Exam General General appearance: alert and in no apparent distress Head Head exam: atraumatic, normocephalic and normal inspection Eye Eye exam: Present normal appearance, PERRL and EOMI; Absent scleral icterus ENT ENT exam: Present normal exam and normal external ear exam Neck Neck exam: Present normal inspection and full ROM Chest Chest inspection: Present normal inspection and symmetric chest wall rise Respiratory Respiratory exam: Present normal lung sounds bilaterally; Absent respiratory distress or wheezes Cardiovascular Cardiovascular exam: Present regular rate, normal rhythm and normal heart sounds Abdominal Exam Abdominal exam: Present soft, distention and tenderness (RLQ and suprapubic tenderness); Absent guarding or rebound Extremities Exam Extremities exam: Present normal inspection and full ROM Back Exam Back exam: Present normal inspection and full ROM Neurological Exam Neurological exam: Present alert and oriented X3 Psychiatric Psychiatric exam: Present normal affect and normal mood Skin Skin exam: Present warm and dry Medical Decision Making Medical Records Medical records reviewed: Yes I reviewed the patient's medical records. Screening: Per USPSTF and CDC recommendations, given the prevalence of disease in our region, it is our hospital?s policy to screen for HIV and viral Hepatitis for all patients aged 18 and over and those with ongoing risk factors. Francis Inquiry Pt receiving controlled substance: No Vital Signs: 04/22/25 15:59 04/22/25 16:06 04/22/25 16:30 Temperature 98.6 F Temperature Source Oral Pulse Rate 106 H 88 Pulse Rate [Left Radial] 106 H Respiratory Rate 19 Blood Pressure 188/63 H 168/60 H Blood Pressure [Right Arm] 188/63 H Blood Pressure Mean 114 Blood Pressure Mean [Right Arm] 104 02 Sat by Pulse Oximetry 94 L 95 97 Oxygen Delivery Method Room Air 04/22/25 17:00 04/22/25 17:30 04/22/25 18:00 Temperature Temperature Source Pulse Rate 82 94 H Pulse Rate [Left Radial] Respiratory Rate Blood Pressure 191/74 H 188/57 H 186/64 H Blood Pressure [Right Arm] Blood Pressure Mean 113 100 104 Blood Pressure Mean [Right Arm] 02 Sat by Pulse Oximetry 94 L 94 L Oxygen Delivery Method 04/22/25 18:30 04/22/25 20:04 04/22/25 20:05 Temperature Temperature Source Pulse Rate 79 Pulse Rate [Left Radial] Respiratory Rate Blood Pressure 196/67 H 197/65 H Blood Pressure [Right Arm] Blood Pressure Mean 110 97 Blood Pressure Mean [Right Arm] 02 Sat by Pulse Oximetry 93 L Oxygen Delivery Method 04/22/25 20:30 04/22/25 20:45 Temperature Temperature Source Pulse Rate 87 Pulse Rate [Left Radial] Respiratory Rate Blood Pressure 199/64 H Blood Pressure [Right Arm] Blood Pressure Mean 109 Blood Pressure Mean [Right Arm] 02 Sat by Pulse Oximetry 93 L Oxygen Delivery Method Lab Data Lab results reviewed: Yes I reviewed the patient's lab results. Lab Results 04/22/25 16:02: WBC 21.1 H*, RBC 3.04 L, Hgb 9.0 L, Hct 28.0 L, MCV 92.1, MCH 29.6, MCHC 32.1, RDW 18.4 H, Plt Count 1072 H*, MPV 11.2 H, Neut % (Auto) 87.2 H, Lymph % (Auto) 6.9 L, Walker % (Auto) 4.4, Eos % (Auto) 0.2, Baso % (Auto) 0.6, Neut # (Auto) 18.4 H, Lymph # (Auto) 1.5, Walker # (Auto) 0.9, Eos # (Auto) 0.1, Baso # (Auto) 0.1, Sodium 138, Potassium 3.1 L, Chloride 103, Carbon Dioxide 27, Anion Gap 11.1, BUN 14, Creatinine 0.90, Estimated Creat Clear 50, Estimated GFR 61, Est GFR ( Amer) 74, Glucose 113 H, Calcium 9.3, Total Bilirubin 0.9, AST 32, ALT 14, Alkaline Phosphatase 69, Total Protein 6.4, Albumin 4.1, Globulin 2.3, Albumin/Globulin Ratio 1.8, Lipase 25, HCV Ab NAVEEN w/Rflx PCR Qn Negative, HIV Ag/Ab Combo Qual Negative 04/22/25 16:45: Lactate 0.8 04/22/25 20:00: Urine Color Yellow, Urine Appearance Clear, Urine pH 5.5, Ur Specific [place] 1.015, Urine Protein Trace, Urine Glucose (UA) Negative, Urine Ketones 2+, Urine Blood Negative, Urine Nitrate Negative, Urine Bilirubin Negative, Urine Urobilinogen 0.2, Ur Leukocyte Esterase Negative, Urine RBC 3-5, Urine WBC 10-20, Ur Squamous Epith Cells 3-5, Urine Bacteria Trace 04/22/25 21:35: WBC 16.1 H, RBC 2.63 L, Hgb 7.8 L D, Hct 24.6 L, MCV 93.5, MCH 29.7, MCHC 31.7 L, RDW 18.5 H, Plt Count 652 H D, MPV 11.0 H, Neut % (Auto) 87.5 H, Lymph % (Auto) 7.3 L, Walker % (Auto) 4.0, Eos % (Auto) 0.2, Baso % (Auto) 0.4, Neut # (Auto) 14.1 H, Lymph # (Auto) 1.2, Walker # (Auto) 0.6, Eos # (Auto) 0.0, Baso # (Auto) 0.1 04/22/25 21:35 04/22/25 16:02 Orders (Tests/Meds): ED MEDICATIONS Generic Name Dose Route Start Last Admin Trade Name Freq PRN Reason Stop Dose Admin Sodium Chloride 10 ml 04/22/25 19:00 04/22/25 19:01 Sodium Chloride 0.9% 10ml Syr (Rad Only) IV 05/22/25 18:59 10 ml NEEDED PRN Administration Maintain IV Site Discontinued Medications Generic Name Dose Route Start Last Admin Trade Name Henry PRN Reason Stop Dose Admin Acetaminophen 1,000 mg 04/22/25 20:22 04/22/25 20:46 Acetaminophen 1,000mg/100ml Vial IV 04/22/25 20:23 1,000 mg ONCE ONE Administration Sodium Chloride 1,000 mls @ 999 mls/hr 04/22/25 16:04 04/22/25 21:38 Sod Chlor 0.9% 1000ml Bag IV 04/22/25 17:04 Infused .Q1H1M ONE Infusion Cefepime HCl 2 gm/ Sodium 100 mls @ 200 mls/hr 04/22/25 17:00 04/22/25 21:39 Chloride IV 04/22/25 17:29 Infused ONCE ONE Infusion Metronidazole 500 mg in 100 mls @ 100 mls/hr 04/22/25 16:55 04/22/25 21:40 Flagyl 500mg/100ml Ivpb IV 04/22/25 17:54 Infused ONCE ONE Infusion Iopamidol 75 ml 04/22/25 19:00 04/22/25 19:01 Iopamidol-370 (76%);100ml Bottle IV 04/22/25 19:01 75 ml ONCE ONE Administration Morphine Sulfate 4 mg 04/22/25 16:04 04/22/25 16:30 Morphine 4mg/Ml Syringe IV 04/22/25 16:05 4 mg ONCE ONE Administration Morphine Sulfate 4 mg 04/22/25 21:41 04/22/25 21:50 Morphine 4mg/Ml Syringe IV 04/22/25 21:42 4 mg ONCE ONE Administration Ondansetron HCl 4 mg 04/22/25 16:04 04/22/25 16:30 Ondansetron 4mg/2ml Vial IV 04/22/25 16:05 4 mg ONCE ONE Administration Ondansetron HCl 4 mg 04/22/25 20:59 04/22/25 21:03 Ondansetron 4mg/2ml Vial IV 04/22/25 21:00 4 mg ONCE ONE Administration ORDERS Category Date Time Status CT abdomen pelvis w con Stat Cat Scan 04/22/25 16:04 Completed CBC w/Auto Diff [Complete Blood Count Auto Diff] Stat Lab 04/22/25 16:02 Completed CBC w/Auto Diff [Complete Blood Count Auto Diff] Stat Lab 04/22/25 21:35 Completed CMP [Comprehensive Metabolic Panel] Stat Lab 04/22/25 16:02 Completed HIV Combo Routine Lab 04/22/25 16:02 Completed Hepatitis C Ab Qual. W/ RFX Routine Lab 04/22/25 16:02 Completed Lactic Acid Stat Lab 04/22/25 16:45 Completed Lipase Stat Lab 04/22/25 16:02 Completed UA [Urinalysis and Microscopic] Stat Lab 04/22/25 20:00 Completed Blood Culture Stat Micro 04/22/25 16:35 Received Urine Culture Stat Micro 04/22/25 20:00 Received Medical Decision Narrative: Patient is an otherwise healthy 74-year-old female who presented to the emergency department with acute suprapubic and right lower quadrant abdominal pain. On arrival, patient was mildly tachycardic vital signs were otherwise unremarkable. Differential includes but not limited to: Intra-abdominal abscess, appendicitis, bowel perforation, intra-abdominal bleeding, bowel obstruction, amongst others. Patient's labs were reviewed and interpreted by myself: CBC showed a leukocytosis of 21, hemoglobin 9. Patient's platelets were significantly elevated at 1072. Patient's CMP was unremarkable with mild hypokalemia of 3.1. Patient's UA showed no evidence of infection. The patient was tachycardic on arrival with an elevated white count, patient was given IV fluids, IV pain medications, Zofran as well as IV antibiotics including cefepime and Flagyl. Patient CT scan was reviewed and interpreted by myself and showed a large right lower quadrant rectus sheath hematoma without any active extravasation. Given that patient's hemoglobin was 9 and patient was initially tachycardic on arrival, I felt the patient should be observed overnight for routine CBC checks. I did initially [place] with the hospitalist however they felt that surgery should weigh in and after discussion with our surgeons, they did not feel comfortable keeping the patient here in our hospital in case the patient needed further interventions. I discussed the case with multiple hospitals and ultimately [facility] accepted the patient for further evaluation and work-up. Patient will be be sent in stable condition via BLS. Patient did get a repeat CBC after 4 hours from initial with slightly downtrending hemoglobin from 9-7.8. Patient's white count did also decrease from 21-16 therefore I suspect that patient's initial elevated white count is likely more reactive than truly infected hematoma. Patient's platelets also downtrended from the thousand to 600. Critical Care Critical Care Time Critical Care Time: No
--- OUTSIDE RECORDS SUMMARY | 2025-04-22 16:00 | XMS_ITS | Clinical Summary ---
Author Organization [facility] Address [address] [place] [address] Care Team Providers Care Inside Account Representative Name Role Phone Provider, No Known Primary [...] finalized on 06/03/2024 2:[address] Joahna Roberson MD. Narrative 06/03/2024 2:46 PM EST LEFT DIAGNOSTIC MAMMOGRAM HISTORY: 73-year-old patient presents for a second opinion regarding a biopsy recommendation for a mass in the left 3 o'clock position. She has no personal or family history of breast cancer. TECHNIQUE: Left low dose, full field digital CC, ML, and MLO views were obtained with tomosynthesis. COMPARISON: Outside mammograms from [facility] 11/20/2019, 12/09/2020, 12/22/2021, 02/15/2023, 03/06/2023, 03/22/2023, [...] Payer ID:[id number] (NAIC) Type:Not on file Address: [place] [phone] [facility] Medicare [employer] PPO Care Teams Inside Account Representative Relationship Specialty Start Date End Date Provider, [place] [address] PCP - General 05/21/24
--- OUTSIDE RECORDS SUMMARY | 2025-04-22 16:02 | XMS_ITS | Patient Health Record ---
Author Organization [facility] Address [address] [id number] Care Team Providers Care Kettle Girl Name Role Phone Radha Pham Primary Care Provider [phone] Prasad Lin Unavailable [phone] Emeka Weaver Unavailable [phone] Allergies Allergen (clinical drug ingredient) Drug/Non Drug Allergy documented on EMR Reaction Allergy Type Onset Date Status Substance with penicillin structure and antibacterial mechanism of action (substance) Penicillins Unknown Drug Allergy Active Results Component Value Reference Range Notes H-Lipid Panel Reviewed date:03/24/2025 10:35:12 PM Interpretation:LDL 38 Performing Lab: Notes/Report: Patient Fasting? Y TRIG 178 30-150 mg/dl CHOL 91 140-200 mg/dl DLDL 38.03 100-129 mg/dL VLDL 36 0-40 mg/dL HDL 36 40-60 mg/dl CHLHDL 2.5 1-3.5 H-CMP Reviewed date:03/24/2025 10:35:12 PM Interpretation: Performing Lab: Notes/Report: NA 135 136-145 mmol/L K 4.4 3.5-5.1 mmoL/L CL 103 98-107 mmol/L CO2 27 22.0-30.0 mmol/L GAP 9.4 5-15 mEq/L BUN 13 7-17 mg/dl CREATT 0.80 0.52-1.04 mg/dl GFRAA 85 >60 ML/MIN EGFR 70 >60 ml/min GLU 95 74-100 mg/dl CA 9.1 8.4-10.2 mg/dl BILIT 0.4 0.2-1.3 mg/dl AST 27 14-36 U/L ALT 14 12-78 U/L TP 6.2 6.3-8.2 g/dl ALB 4.1 3.5-5.0 g/dl GLOB 2.1 1.3-3.2 g/dL AGRATIO 2.0 1.1-1.8 ALP 66 38-126 U/L Mammogram, Bilateral Diagnos tic Reviewed date:06/04/2024 08:53:37 AM Interpretation: Performing Lab: Notes/Report: Mammogram, Bilateral Diagnos tic Reviewed date:06/04/2024 08:53:37 AM Interpretation: Performing Lab: Notes/Report: Medications Medication SIG (Take, Route, Frequency, Duration) Notes Start Date End Date Status Omeprazole 40 MG 1 tab(s) orally once a day pt needs appt Active Dicyclomine HCl 10 MG 1 capsule Orally Three times a day prn; Duration: 30 days 03/04/2025 Active Lisinopril 20 MG 1 tab(s) orally once a day pt needs appt Active metroNIDAZOLE 0.75 % 1 truong applied topically 2 times a day Active Vitamin D3 25 MCG (1000 UT) 1 tab(s) orally once a day Active Singulair 10 MG 1 tab(s) orally once a day (in the evening) Active Probiotic Formula 1-250 BILLION-MG 1 cap(s) orally once a day Active Lisinopril 20 MG 1 tab(s) orally once a day Active Ferrous Sulfate 325 (65 Fe) MG 1 tab(s) orally once daily 06/14/2022 Active Crestor 10 MG 1 tab(s) orally once a day Active hydrOXYzine HCl 25 MG [...] once a day (in the evening) Active Vitamin B-12 1000 MCG 1 cap(s) sublingua lly once a day Active Flonase Allergy Relief 50 MCG/ACT 1 spray(s) intranasally once a day Active Fish Oil 1000 MG 1 cap(s) orally 3 times a day Active Azelastine HCl 137 MCG/SPRAY 4 sprays intranasally 2 times a day Active Vitamin C 500 MG 1 tab(s) orally once a day Active Immunizations Vaccine Route Administration Date Status Comme nts xFluzone High Dose-private (65yr&older) IM Intramuscular 12/19/2014 Administered xFluzone (6mos and older)-trivalent IM Intramuscular 01/15/2014 Administered xFlu shot- 6months-36 months of rxo-VUKM-NRBL-trivalent Unknown 12/11/2015 Administered Tetanus Tdap-Adacel (over 7yrs) IM Intramuscular 02/13/2008 Administered Tetanus Tdap-Adacel (over 7yrs) IM Intramuscular 09/28/2018 Administered Prevnar (PCV20) IM Intramuscular 01/17/2023 Administered Prevnar (PCV13) IM Intramuscular 11/04/2015 Administered PNEUMOVAX 23 VACCINE IM Intramuscular 09/04/2017 Administe red Fluzone Quad (6months&older) Unknown 12/12/2016 Administered Fluzone PF Quad (6-35 months) Unknown 12/12/2016 Administered Fluzone High Dose (65yr and older) IM Intramuscular 12/26/2018 Administered Fluzone High Dose (65yr and older) Unknown 01/08/2020 Administered Fluzone High Dose (65yr and older) Unknown 01/27/2021 Administered Fluzone High Dose (65yr and older) Unknown 01/14/2022 Administered Fluzone High Dose (65yr and older) IM Intramuscular 01/17/2023 Administered Fluzone High Dose (65yr and older) IM Intramuscular 01/02/2024 Administered COVID 19 Moderna Unknown 07/01/2020 Administered COVID 19 Moderna Unknown 07/30/2020 Administered COVID 19 Moderna Unknown 03/24/2021 Administered Problems Problem Type SNOMED Code ICD Code Onset Dates Problem Status W/U Status Risk Notes Problem Overactive bladder (093572188) Overactive bladder (N32.81) Active confirmed Problem Abnormal mammogram (044052226) Abnormal mammogram (R92.8) Active confirmed Problem Irritable bowel syndrome (52865445) IBS (irritable bowel syndrome) (K58.9) Active confirmed Problem Anxiety (08470184) Anxiety (F41.9) Active confi rmed Problem Hypertension (44230357) Hypertension (I10) Active confirmed Problem Seasonal allergy (556856833) Seasonal allergies (J30.2) Active confirmed Problem Rosacea (691852304) Rosacea (L71.9) Active conf irmed Problem Allergic rhinitis (53497889) Allergic rhinitis, unspecified (J30.9) Active confirmed Problem Gastroesophageal reflux disease without esophagitis (359405853) Gastroesophageal reflux disease without esophagitis (K21.9) Active confirmed Problem Dyslipidemia (929100182) Dyslipidemia (E78.5) Active confirmed Problem Allergic rhinitis (66703785) Allergic rhinitis, unspecified seasonality, unspecified trigger (J30.9) Active confirmed Vital Signs Heart Rate 92 /min 04/22/2025 Blood pressure diastolic 70 mm Hg 04/22/2025 Height 62 in 04/22/2025 Blood pressure systolic 130 mm Hg 04/22/2025 Weight 143.6 lbs 04/22/2025 BMI 26.26 kg/m2 04/22/2025 Encounters Encounter Location Date Provider Diagnosis [facility] [facility] [address] [place], [place] [id number] 07/18/2024 R Ramy Valenzuelafleet Adult general medica l examination Z00.00 ; Hypertension I10 ; Dyslipidemia E78.5 ; Gastroesophageal reflux disease without esophagitis K21.9 ; Overactive bladder N32.81 ; Rosacea L71.9 ; Seasonal allergies J30.2 and BMI 26.0-26.9,adult Z68.26 [facility] [address] [facility] 36 [facility] [address] [place], [place] [id number] 10/07/2024 Emeka [place] Allergic rhinitis, unspecified J30.9 [facility] [address] [facility] 36 [facility] [address] [place], [place] [id number] 10/21/2024 R Ramy Vero Allergic rhinitis, unspecified J30.9 [facility] [address] [facility] 36 [facility] [address] [place], [place] [id number] 12/16/2024 R Ramy Vero Allergic rhinitis, unspecified J30.9 [facility] [address] [facility] 36 [facility] [address] [place], [place] [id number] 12/23/2024 R Ramy Vero Allergic rhinitis, unspecified seasonality, unspecified trigger J30.9 [facility] [address] [place], [place] [id number] 12/30/2024 R Ramy Vero Allergic rhinitis, unspecified J30.9 [facility] [address] [place], [place] [id number] 01/07/2025 R Ramy Vero Allergic rhinitis, unspecified J30.9 [facility] [address] [place], [place] [id number] 01/13/2025 R Ramy Vero Allergic rhinitis, unspecified seasonality, unspecified trigger J30.9 [facility] [address] [place], [place] [id number] 01/20/2025 R Ramy Vero Allergic rhinitis, unspecified J30.9 [facility] [address] [place] [id number] 01/29/2025 R Ramy Vero Allergic rhinitis, unspecified seasonality, unspecified trigger J30.9 [facility] [address] [place], [place] [id number] 02/04/2025 R Ramy Vero Allergic rhinitis, unspecified seasonality, unspecified trigger J30.9 [facility] [address] [place] [id number] 02/10/2025 R Ramy Vero Allergic rhinitis, unspecified seasonality, unspecified trigger J30.9 [facility] [address] [place], [place] [id number] 02/17/2025 R Ramy Vero Allergic rhinitis, unspecified J30.9 [facility] [address] [place] [id number] 02/24/2025 R Ramy Vero Allergic rhinitis, unspecified seasonality, unspecified trigger J30.9 [facility] [address] [place], [place] [id number] 03/04/2025 R Ramy Vero Hypertension I10 ; Dyslipidemia E78.5 ; Gastroesophageal reflux disease without esophagitis K21.9 ; Overactive bladder N32.81 ; Rosacea L71.9 ; Seasonal allergies J30.2 ; IBS (irritable bowel syndrome) K58.9 and Allergic rhinitis, unspecified J30.9 [facility] [address] [place], [place] [id number] 03/11/2025 R Ramy Vero Allergic rhinitis, unspecified seasonality, unspecified trigger J30.9 [facility] [address] [place] [id number] 03/17/2025 R Ramy Vero Allergic rhinitis, unspecified J30.9 [facility] [address] [place], [place] [id number] 03/24/2025 R Ramy Vero Allergic rhinitis, unspecified seasonality, unspecified trigger J30.9 [facility] [address] [place], [place] [id number] 03/31/2025 R Ramy Vero Allergic rhinitis, unspecified J30.9 [facility] [address] [place], [place] [id number] 04/07/2025 R Ramy Vero Allergic rhinitis, unspecified seasonality, unspecified trigger J30.9 [facility] [address] [place], [place] [id number] 04/14/2025 R Ramy Vero Allergic rhinitis, unspecified seasonality, unspecified trigger J30.9 [facility] [address] [place], [place] [id number] 04/22/2025 R Ramy Vero [facility] [address] [place], [place] [id number] 04/01/2025 R Ramy Vero [facility] [address] [place], [place] [id number] 05/06/2024 R Ramy Vero Abnormal mammogram R 92.8 [facility] [address] [place], [place] [id number] 06/04/2024 R Ramy Vero [facility] [address] [place] [id number] 03/24/2025 Radha Pham Assessments Encounter Date Diagnosis (ICD Code) Assessment Notes Treatment Notes Treatment Clinical Notes Section Notes 07/18/2024 Adult general medical examination (ICD-10 - Z00.00) Patient instructed to return to office Annually for Annual Wellness Visits to include annual screenings of Pain assessment, Functional Ability assessment, Cognitive Ability assessment, Fall Risk assessment, Depression screening and Bladder control screening. 10/07/2024 Allergic rhinitis, unspecified (ICD-10 - J30.9) 10/21/2024 Allergic rhinitis, unspecified (ICD-10 - J30.9) 12/16/2024 Allergic rhinitis, unspecified (ICD-10 - J30.9) 12/23/2024 Allergic rhinitis, unspecified seasonality, unspecified trigger (ICD-10 - J30.9) 12/30/2024 Allergic rhinitis, unspecified (ICD-10 - J30.9) 01/07/2025 Allergic rhinitis, unspecified (ICD-10 - J30.9) 01/13/2025 Allergic rhinitis, unspecified seasonality, unspecified trigger (ICD-10 - J30.9) 01/20/2025 Allergic rhinitis, unspecified (ICD-10 - J30.9) 01/29/2025 Allergic rhinitis, unspecified seasonality, unspecified trigger (ICD-10 - J30.9) 02/04/2025 Allergic rhinitis, unspecified seasonality, unspecified trigger (ICD-10 - J30.9) 02/10/2025 Allergic rhinitis, unspecified seasonality, unspecified trigger (ICD-10 - J30.9) 02/17/2025 Allergic rhinitis, unspecified (ICD-10 - J30.9) 02/24/2025 Allergic rhinitis, unspecified seasonality, unspecified trigger (ICD-10 - J30.9) 05/06/2024 Abnormal mammogram (ICD-10 - R92.8) 07/18/2024 Hypertension (ICD-10 - I10) 03/04/2025 Hypertension (ICD-10 - I10) 03/04/2025 Dyslipidemia (ICD-10 - E78.5) 03/11/2025 Allergic rhinitis, unspecified seasonality, unspecified trigger (ICD-10 - J30.9) 03/17/2025 Allergic rhinitis, unspecified (ICD-10 - J30.9) 03/24/2025 Allergic rhinitis, unspecified seasonality, unspecified trigger (ICD-10 - J30.9) 03/31/2025 Allergic rhinitis, unspecified (ICD-10 - J30.9) 04/07/2025 Allergic rhinitis, unspecified seasonality, unspecified trigger (ICD-10 - J30.9) 04/14/2025 Allergic rhinitis, unspecified seasonality, unspecified trigger (ICD-10 - J30.9) 03/04/2025 Gastroesophageal reflux disease without esophagitis (ICD-10 - K21.9) 07/18/2024 Dyslipidemia (ICD-10 - E78.5) 03/04/2025 Overactive bladder (ICD-10 - N32.81) 07/18/2024 Gastroesophageal reflux disease without esophagitis (ICD-10 - K21.9) 07/18/2024 Overactive bladder (ICD-10 - N32.81) 03/04/2025 Rosacea (ICD-10 - L71.9) 03/04/2025 Seasonal allergies (ICD-10 - J30.2) 07/18/2024 Rosacea (ICD-10 - L71.9) 07/18/2024 Seasonal allergies (ICD-10 - J30.2) 03/04/2025 IBS (irritable bowel syndrome) (ICD-10 - K58.9) 07/18/2024 BMI 26.0-26.9,adult (ICD-10 - Z68.26) 03/04/2025 Allergic rhinitis, unspecified (ICD-10 - J30.9) Plan Of Treatment Pending Test Test Name Order Date Urinalysis - Inhouse 04/22/2025 Ultrasound : Breasts, bilateral 05/16/19 25 CBC Fingerstick (in house) 04/22/2025 Biopsy : Stereotactic, left breast 04/12 H-Lipid Panel 03/04/2025 H-CMP 03/04/2025 Insurance Providers Payer Name Payer Address Payer Phone Subscriber Number Group Number Insured Name Patient Relationship to Insured Coverage Start Date Coverage End Date [employer] [address] [address] [place], [place] [id number] Kimberly Alexander Self - patient is the insured Medications Administered Medication Instructions Date of Administration Dosage Notes allergy 10/07/2024 0.5 mL allergy 10/07/2024 0.5 mL allergy 10/21/2024 0.5 mL allergy 10/21/2024 0.5 mL allergy 12/16/2024 0.05 mL mix 2 allergy 12/16/2024 0.05 mL mix 1 allergy 12/23/2024 0.05 mL vial 2: left allergy 12/23/2024 0.05 mL vial 1: right allergy 12/30/2024 0.10 mL mix 1: left allergy 12/30/2024 0.10 mL mix 2: right allergy 01/07/2025 0.1 mL vial 1: right arm allergy 01/07/2025 0.10 mL vial 2: left a rm allergy 01/13/2025 0.20 mL Vial 1: LT Arm allergy 01/13/2025 0.20 mL Vial 2: RT Arm allergy 01/20/2025 0.20 mL vial 1: RA allergy 01/20/2025 0.20 mL vial 2: LA allergy 01/29/2025 0.30 mL Mix 1: LT Arm allergy 01/29/2025 0.30 mL Mix 2: RT Arm allergy 02/04/2025 0.30 mL Mix 1 LA allergy 02/04/2025 0.30 mL Mix 2 RA allergy 02/10/2025 0.40 mL Mix 1: LT Arm allergy 02/10/2025 0.40 mL Mix 2: RT Arm allergy 02/17/2025 0.4 mL vial 1: RA allergy 02/17/2025 0.4 mL vial 2: LA allergy 02/24/2025 0.05 mL Vial 1 Left Ar m allergy 02/24/2025 0.05 mL Vial 2 Right A rm allergy 03/04/2025 0.05 mL vial 1- RA allergy 03/04/2025 0.05 mL vial 2- LA allergy 03/11/2025 0.10 mL mix 1- LA allergy 03/11/2025 0.10 mL mix 2- RA allergy 03/17/2025 0.10 mL vial 1- RA allergy 03/17/2025 0.10 mL VIAL 2- LA allergy 03/24/2025 0.2 mL mix 1- LA allergy 03/24/2025 0.2 mL mix 2-RA allergy 03/31/2025 0.20 mL mix 1 DP- RA allergy 03/31/2025 0.2 mL mix 2 MC- LA allergy 04/07/2025 0.30 mL mix 1- LA allergy 04/07/2025 0.30 mL mix 2- RA allergy 04/14/2025 0.30 mL mix 1- RA allergy 04/14/2025 0.30 mL mix 2- LA Depo- Medrol 40 mg/ml 01/14/2010 1 mL Depo- Medrol 40 mg/ml 08/20/2010 1.5 mL Depo- Medrol 40 mg/ml 01/30/2012 1.5 mL Depo- Medrol 40 mg/ml 02/20/2024 1.5 mL Dexamethasone 03/09/2005 0.5 mL Dexamethasone 03/15/2005 1 mL Dexamethasone 04/27/2005 1 mL Dexamethasone 03/09/2006 1 mL Dexamethasone 05/30/2006 Dexamethasone 06/01/2006 1 mL Dexamethasone 07/27/2006 1 mL Dexamethasone 02/24/2007 1 mL Dexamethasone 03/27/2007 1 mL Dexamethasone 04/05/2007 1 mL Dexamethasone 03/15/2008 1 mL Dexamethasone 06/12/2008 1 mL Dexamethasone 06/30/2008 1 mL Dexamethasone 07/25/2009 1 mL Dexamethasone 06/29/2012 1.0 mL Dexamethasone 07/10/2012 1 mL Dexamethasone 06/12/2014 1 mL Medical (General) History Medical History History ICD Code allergies tobacco abuse Hypertension diverticulosis- mild 07/10 Surgical History Surgery Date(Month/Year) cholecystectomy 2002 tonsillectomy C-scope/ [facility] 2014 EGD/ [facility]/ sliding HH, mild gastritis , polyp 2013 C-scope/ [facility]/ adenoma and hyperplast ic polyp; tics 04/2024 Hospitalization History Reason Date(Month/Year) [facility] ER, fell on left knee, no fracture d ec. 2006
--- NOTE | 2025-04-22 16:04 | CT_ITS ---
PROCEDURE INFORMATION: Exam: CT Abdomen And Pelvis With Contrast Exam date and time: 04/22/2025 6:55 PM Age: 74 years old Clinical indication: Abdominal pain; Additional info: Rlq tenderness R/O appy TECHNIQUE: Imaging protocol: Computed tomography of the abdomen and pelvis with contrast. Total images: 307 Radiation optimization: All CT scans at this facility use at least one of these dose optimization techniques: automated exposure control; mA and/or kV adjustment per patient size (includes targeted exams where dose is matched to clinical indication); or iterative reconstruction. Contrast material: ISOVUE; Contrast volume: 75 ml; Contrast route: IV; COMPARISON: No relevant prior studies available. FINDINGS: Lungs: Bilateral lower lobe atelectasis and or infiltrate. Calcified pulmonary granuloma. Pleural spaces: Small bilateral pleural effusions. Heart: Normal heart size. Coronary arteries: Severe coronary artery calcifications. Esophagus: Distal esophageal wall thickening. Liver: Normal. No mass. Gallbladder and biliary ducts: Status post cholecystectomy. Mild biliary ductal dilatation. Pancreas: Normal. No ductal dilation. Spleen: Splenomegaly at 14 cm. No splenic mass or infarct. Adrenal glands: Mild bilateral adrenal thickening. Kidneys and ureters: Asymmetric mild left renal atrophy. Subcentimeter right renal cortical hypodensities too small to characterize but statistically cysts requiring no strict follow-up. No hydronephrosis. Mild bilateral perinephric fat stranding. Stomach and bowel: Unremarkable stomach and duodenum. No ileus or bowel obstruction. Unremarkable small bowel. Moderate colonic diverticulosis without acute diverticulitis. Unremarkable rectum. Appendix: No evidence of appendicitis. Intraperitoneal space: Unremarkable. No free air. No significant fluid collection. Vasculature: Moderate atherosclerotic vascular disease. Nonaneurysmal abdominal aorta. 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 No downstream occlusion. Lymph nodes: Calcified right hilar lymph nodes. Urinary bladder: Bladder wall thickening. Reproductive: Atrophic uterus and ovaries. No adnexal mass. Bones/joints: Mild degenerative changes throughout the thoracolumbar spine. Significant abnormality of bone mineralization likely reflecting systemic causes such as renal osteodystrophy or nonspecific metabolic bone disease. Soft tissues: Acute right rectus sheath hematoma, measuring 12.5 x 4.6 x 6.6 cm. No convincing evidence for active arterial contrast extravasation within the hematoma. Contiguous blood products in the abdominal wall and anterior pelvis. IMPRESSION: 1. Acute right rectus sheath hematoma, measuring 12.5 x 4.6 x 6.6 cm. No convincing evidence for active arterial contrast extravasation within the hematoma. Contiguous blood products in the abdominal wall and anterior pelvis. 2. Small bilateral pleural effusions. 3. Bilateral lower lobe atelectasis and probable infectious/inflammatory infiltrate. 4. Mild splenomegaly. 5. Mild biliary ductal dilatation, most likely post cholecystectomy ectasia. If elevated bilirubin, follow-up nonemergent MRCP. 6. Bladder wall thickening concerning for cystitis 7. Colonic diverticulosis without diverticulitis 8. Considerable abnormality of bone mineralization implying metabolic bone disease. Consider renal osteodystrophy. Cannot exclude extensive bone metastases.
[2025-04-22 16:15] LABS: Hematocrit 28.0 % (37.0-47.0); Hemoglobin 9.0 g/dL (12.2-16.2); Immature Granulocytes % 0.7 %; Mean Corpuscular HGB Conc 32.1 g/dL (31.8-35.4); Mean Corpuscular Hemoglobin 29.6 pg (27.0-31.2); Mean Corpuscular Volume 92.1 fl (81-99); Nucleated Red Blood Cells % 0.1 %; Red Blood Count 3.04 M/mm3 (4.20-5.40); Red Cell Distribution Width-SD 60.1 fL; White Blood Count 21.1 K/mm3 (4.8-10.8)
[2025-04-22 16:16] LABS: Platelet Count 1072 K/mm3 (142-424)
[2025-04-22 16:28] LABS: Alanine Aminotransferase 14 U/L (12-78); Albumin Level 4.1 g/dl (3.5-5.0); Albumin/Globulin Ratio 1.8 (1.1-1.8); Alkaline Phosphatase 69 U/L (38-126); Anion Gap 11.1 mEq/L (5-15); Aspartate Amino Transferase 32 U/L (14-36); Bilirubin,Total 0.9 mg/dl (0.2-1.3); Blood Urea Nitrogen 14 mg/dl (7-17); Calcium 9.3 mg/dl (8.4-10.2); Carbon Dioxide 27 mmol/L (22.0-30.0); Chloride 103 mmol/L (98-107); Creatinine Clearance Estimated 50 mL/min (50-200); Creatinine,Serum 0.90 mg/dl (0.52-1.04); Estimated Glomerular Filt Rate 61 ml/min (>60); GFR (African American) 74 ML/MIN (>60); Globulin 2.3 g/dL (1.3-3.2); Glucose 113 mg/dl (74-100); Lipase 25 U/L (23-300); Potassium 3.1 mmoL/L (3.5-5.1); Sodium 138 mmol/L (136-145); Total Protein,Serum 6.4 g/dl (6.3-8.2)
[2025-04-22] MEDS: ONDANSETRON 4MG/2ML VIAL 4 MG IV ×2 (16:30→21:03)
[2025-04-22] MEDS: MORPHINE 4MG/ML SYRINGE 4 MG IV ×2 (16:30→21:50)
[2025-04-22] MEDS: 0.9 % SODIUM CHLORIDE 1000ML 1,000 ML 999 ML IV (16:31)
[2025-04-22 17:31] LABS: Hepatitis C Ab Qual. W/ RFX NEGATIVE (Negative)
[2025-04-22] MEDS: CEFEPIME HCL 2 GM in 0.9 % SODIUM CHLORIDE 100 ML IV (17:39)
[2025-04-22] MEDS: METRONIDAZ/SOD CHL 500 MG/100 ML PIGGYBACK 100 MG IV (18:55)
[2025-04-22] MEDS: SODIUM CHLORIDE 0.9% 10ML SYR (RAD ONLY) 10 ML IV (19:01)
[2025-04-22] MEDS: IOPAMIDOL-370 (76%);100ML BOTTLE 75 ML IV (19:01)
--- NOTE | 2025-04-22 19:21 | PC.NURSE ---
Report received from Mary RN Pt back from CT scan Pt resting quietly in bed Skin pink warm and dry Resp full and easy Speech clear and appropriate. Family at bedside. Pt in SR per continuous heart monitor Cardene drip titrated to 1.25 mg/hr IV site without redness or edema
[2025-04-22 20:14] LABS: Microscopic, Urine URINE MICROSCOPIC (MICROSCOPIC)
[2025-04-22 20:22] LABS: Bilirubin,Urine Negative (Negative); Color,Urine YELLOW (Yellow); Glucose,Urine (UA) Negative (Negative); Ketones,Urine 2+ (Negative); Leukocyte Esterase,Urine Negative (Negative); PH,Urine 5.5 (5.0-8.5); Protein,Urine TRACE (Negative); Specific Gravity, Urine 1.015 (1.005-1.030); Urobilinogen,Urine 0.2 EU/dl (0.2)
--- NOTE | 2025-04-22 20:24 | PC.NURSE ---
spoke with transfer center, awaiting a call back at this time
--- NOTE | 2025-04-22 20:42 | PC.NURSE ---
Spoke with [facility], they did not have any beds. then spoke with [facility] and they are going to call their general surgery team to see about acceptance. we are awaiting a call back at this time
[2025-04-22] MEDS: ACETAMINOPHEN 1,000MG/100ML VIAL 1000 MG IV (20:46)
[2025-04-22 20:49] LABS: Bacteria,Urine Trace /lpf
--- NOTE | 2025-04-22 21:15 | PC.NURSE ---
Pt aware of plans for transfer
--- NOTE | 2025-04-22 21:36 | PC.NURSE ---
Repeat CBC sent
[2025-04-22 21:40] LABS: Hematocrit 24.6 % (37.0-47.0); Immature Granulocytes % 0.6 %; Mean Corpuscular HGB Conc 31.7 g/dL (31.8-35.4); Mean Corpuscular Hemoglobin 29.7 pg (27.0-31.2); Mean Corpuscular Volume 93.5 fl (81-99); Nucleated Red Blood Cells % 0 %; Platelet Count 652 K/mm3 (142-424); Red Blood Count 2.63 M/mm3 (4.20-5.40); Red Cell Distribution Width-SD 61.2 fL; White Blood Count 16.1 K/mm3 (4.8-10.8)
[2025-04-22 21:56] LABS: Hemoglobin 7.8 g/dL (12.2-16.2)
--- NOTE | 2025-04-22 22:28 | PC.NURSE ---
Attempted to call report De has the incorrect patient registered They will call back
--- NOTE | 2025-04-22 22:49 | PC.NURSE ---
[facility] notified of need for transport
== END 2025-04-22 23:34 | disposition short-term general hospital (02) ==
PROVIDERS: Emergency Provider Student in an Organized Health Care Education/Training Program; PCP Family Medicine
DX: R10.31 Right lower quadrant pain (principal); R10.24 Suprapubic pain; M79.81 Nontraumatic hematoma of soft tissue; D64.9 Anemia, unspecified; E87.6 Hypokalemia; D72.829 Elevated white blood cell count, unspecified
CPT/HCPCS: 74177; 80053; 81001; 83605; 83690; 85025; 86803; 87040; 87086; 87389; 96361; 96365; 96375; 96376; 99285; J0131; J0692; J1836; J2270; J2405; J7030; Q9967